=== PATIENT | male | born 1990 | race Two or more races ===

== ENCOUNTER 2024-06-27 13:36 | Inpatient (IN) | payer MEDICAID, SELFPAY ==
[2024-06-27] VITALS (21 sets, daily range): BP systolic 121–150; BP diastolic 69–94; PULSE 80–114; RESP 16–26; TEMP 36.6–36.8; O2SAT 99–100; BMI 29.7
--- NOTE | 2024-06-27 14:30 | EKG_ITS ---
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
--- NOTE | 2024-06-27 14:30 | XR_ITS ---
Examination: PA chest single view TECHNIQUE: Upright PA chest single view Exam date and time: June 27, 2024 1439 hours INDICATIONS: Vomiting today. FINDINGS: Normal heart size Lungs are clear. The osseous structures are intact IMPRESSION: Negative for aspiration pneumonia
--- NOTE | 2024-06-27 14:32 | PD.EDNV ---
Nausea/Vomit./Diarrhea-RME/HPI General Chief complaint: Nausea/Vomiting/Diarrhea Stated complaint: SENT BY PCP FOR N/V, SOB, HIGH GLUCOSE R/O DKA Time Seen by Provider: 06/27/24 14:26 Arrival date/time: 06/27/24 13:36 RME / HPI RME / HPI Narrative: 34-year-old male patient with no known medical history and today was noted to have elevated blood sugar. Patient has been having nausea vomiting cannot keep anything down, palpitation, shortness of breath, not feeling well, drinking a lot of water, and dry mouth. Patient also complained of polyuria. Symptoms been going for the last 3 days. Patient denies any fever denies any cough denies any abdominal pain. Patient went to PCP today and was noted to have a blood sugar of 288, and was sent here to rule out DKA. Related Data Allergies Allergy/AdvReac Type Severity Reaction Status Date / Time No Known Allergies Allergy Verified 06/27/24 13:40 Review of Systems Review of Systems Narrative Review of Systems: Review of system reviewed and within normal limits except mentioned in HPI ED Exam Narrative Physical exam: VITAL SIGNS: Reviewed. GENERAL APPEARANCE: Alert and interactive, follows commands, no acute distress, HEAD AND FACE: Non-traumatic. ENT: PERRL, pink conjunctivitis, eyelid no trauma, Mucous membrane dry NECK: Supple, nontender, no nuchal rigidity. CHEST: No tenderness, no crepitus, no paradoxical movement, no retractions. LUNGS: Clear, well ventilated, symmetric, no rales, no wheezing, no ronchi, no stridor, good breath sounds bilaterally. HEART: Regular rate, regular rhythm, no murmur, no gallops. ABDOMEN: Soft, positive bowel sounds, nondistended, no guarding, nontender, no rebound, no masses, RECTAL: Deferred. GENITAL: Deferred. NEUROLOGICAL: Gross motor function intact sensory function intact, Appropriate for age. MUSCULOSKELETAL: low back nontender, full range of motion. EXTREMITIES: Nontender, full range of motion. SKIN: Color pink, dry, no rash, no lacerations, no abrasions, no contusions. LYMPHATICS: Deferred. Course Quality Measures none Orders Category Date Time Status COVID-19 Screening Questionnaire NOW Care 06/27/24 15:34 Active Decision to Admit X1 Care 06/27/24 15:34 Completed EKG (ED ONLY) *Do not use* NOW Care 06/27/24 14:31 Completed EKG (ED Only) Stat Exams 06/27/24 14:30 Draft XR chest 1V Stat Exams 06/27/24 14:30 Completed Acetone [Beta Hydroxybutyrate] Stat Lab 06/27/24 14:48 Completed Arterial Blood Gas Stat Lab 06/27/24 16:56 Received CBC Stat Lab 06/27/24 14:48 Completed Comprehensive Metabolic Panel Stat Lab 06/27/24 14:48 Completed Hemoglobin A1C [Glycohemoglobin w (eAG)] Stat Lab 06/27/24 14:48 Completed Lactate (Lactic Acid) Stat Lab 06/27/24 14:48 Completed Partial Thromboplastin Time Stat Lab 06/27/24 14:48 Completed Procalcitonin Stat Lab 06/27/24 14:48 Completed UA, C/S IF [Urinalysis, C/S if Indicated] Stat Lab 06/27/24 15:14 Completed Venous Blood Gas Stat Lab 06/27/24 16:40 Received KCL 20 mEq/L in 1/2NS Med 06/27/24 15:31 Discontinued 20 meq in 1,000 ml IV 12 mls/hr Ondansetron Inj [Zofran Inj] Med 06/27/24 14:32 Discontinued 4 mg IV X1 ONE Potassium Chloride [K-Dur] Med 06/27/24 15:30 Discontinued 40 meq PO X1 ONE Sodium Chloride 0.9% 1000 ml [Ns] 1,000 ml Med 06/27/24 14:32 Discontinued IV 999 mls/hr Vital Signs Vital signs: Vital Signs Temperature 98.3 F 06/27/24 14:26 Pulse Rate 114 H 06/27/24 14:26 Respiratory Rate 18 06/27/24 14:26 Blood Pressure 134/90 H 06/27/24 14:26 Pulse Oximetry (%) 99 06/27/24 14:26 Oxygen Delivery Method Room Air 06/27/24 14:26 Nausea/Vomiting/Diarrhea MDM Narrative MDM Narrative:: 34-year-old male patient with no known medical history and today was noted to have elevated blood sugar. Patient has been having nausea vomiting cannot keep anything down, palpitation, shortness of breath, not feeling well, drinking a lot of water, and dry mouth. Patient also complained of polyuria. Symptoms been going for the last 3 days. Patient denies any fever denies any cough denies any abdominal pain. Patient went to PCP today and was noted to have a blood sugar of 288, and was sent here to rule out DKA. Patient's workup is significant for diabetic ketoacidosis, patient Co2 was noted to be less than 10, anion gap of 22, potassium 3.1 creatinine 1.7 blood sugar of 349. With hydroxybutyrate was noted to be 6.4. Chest x-ray came back unremarkable. EKG showed sinus tachycardia, ventricular to 112 bpm, no ST segment elevation depression noted Potassium was replaced, using 40 mEq p.o. 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 patient Patient data External records reviewed:: None Clinical information provided by:: patient Social determinants that could affect healthcare access:: none Patient has the following chronic illnesses:: None How is presenting disease/condition affected by chronic disease/condition?: no chronic disease Evaluation data The following diagnostics were reviewed and interpreted by me:: lab results, radiology exam(s) and EKG tracing(s) Lab and/or radiology exams considered but not ordered:: None Interpretation Summary: EKG shows sinus tachycardia, ventricular to 112 bpm, no ST segment elevation depression. Patient's workup is significant for diabetic ketoacidosis, patient Co2 was noted to be less than 10, anion gap of 22, potassium 3.1 creatinine 1.7 blood sugar of 349. With hydroxybutyrate was noted to be 6.4. Chest x-ray came back unremarkable. EKG showed sinus tachycardia, ventricular to 112 bpm, no ST segment elevation depression noted. I personally reviewed and interpreted the x-ray of this patient. There is no acute abnormalities found, no infiltrates no pneumothorax no hemothorax normal chest x-ray. Review of other structures was without significant abnormal findings also. I additionally reviewed the radiologist report and agree with the interpretation. Medications / Prescriptions Medications / Prescriptions considered but not ordered:: None Medication administrations:: Medication Administration History Dextrose (Dextrose 50%-Water Inj 50 Ml Syringe) 25 ml IV PRNMRX1 PRN PRN Reason: Blood Sugar - Low Dextrose/Lactated Ringer's (D5-Lr) 1,000 mls @ 250 mls/hr IV .Q4H PRN PRN Reason: PER PROTOCOL Stop: 07/27/24 16:01 Lactated Ringer's (Lactated Ringers) 1,000 mls @ 250 mls/hr IV .Q4H PRN PRN Reason: PER PROTOCOL Stop: 06/28/24 16:01 Discontinued Medications Acetaminophen (Acetaminophen 325 Mg Tablet) 650 mg PO Q4HR PRN PRN Reason: PAIN SCALE 1-3 (mild Stop: 07/27/24 16:01 Acetaminophen (Acetaminophen Supp 650 Mg Supp) 650 mg [place] Q4HR PRN PRN Reason: PAIN SCALE 1-3 (mild Stop: 07/27/24 16:01 Sodium Chloride (Ns) 1,000 mls @ 999 mls/hr IV .Q1H1M ONE Stop: 06/27/24 15:32 Last Infusion: 06/27/24 16:49 Dose: Infused Documented By: Admin: 06/27/24 15:03 Dose: 999 mls/hr Documented By: DINA Potassium Chloride/Sodium Chloride (Kcl 20 Meq/L In 1/2ns) 20 meq in 1,000 mls @ 12 mls/hr IV .Q24H GINA; Protocol Stop: 07/27/24 15:30 Last Admin: 06/27/24 16:50 Dose: Not Given Documented By: DD Non-Admin Reason: Discontinued Insulin Human Regular (Insulin Hum Regular 1 Unit/0.01 Ml (Per Unit)) 10 unit IV X1 ONE Stop: 06/27/24 16:25 Last Admin: 06/27/24 16:50 Dose: Not Given Documented By: DD Non-Admin Reason: Discontinued Magnesium Hydroxide (Milk Of Magnesia Susp 30 Ml Udc) 30 ml PO QDAY PRN PRN Reason: CONSTIPATION Stop: 07/27/24 16:01 Ondansetron HCl (Ondansetron Inj 2 Mg/Ml Inj 2 Ml) 4 mg IV X1 ONE; Protocol Stop: 06/27/24 14:33 Last Admin: 06/27/24 16:48 Dose: 4 mg Documented By: KORTNEY Potassium Chloride (Potassium Chloride 20 Meq Tabcr) 40 meq PO X1 ONE Stop: 06/27/24 15:31 Last Admin: 06/27/24 16:01 Dose: 40 meq Documented By: KF Potassium Chloride (Potassium Chloride 20 Meq Tabcr) 40 meq PO X1 ONE Stop: 06/27/24 16:26 Last Admin: 06/27/24 16:48 Dose: 40 meq Documented By: DD Potassium replacement, IV fluids, Zofran Consultations Consultation(s) initiated? (list below): No Consultation #1 (Physician, Specialty, Details): None Diagnosis Nausea Differential Diagnosis: gastroenteritis and dehydration Most likely diagnosis given after review of the tests above:: Diabetic ketoacidosis Admission Indicated Admission indicated?: indicated Explain why admission is indicated or not indicated:: For further management Admission Request Was there a request for admission?: Yes Admission Attestation Admission request attestation: Discussed case with [Dr. Madsen] from Hospitalist service regarding admission. Discussed patients ED course, exam findings, labs, and radiology results. The Hospitalist [agrees] to accept the patient for admission. Disposition Plan Disposition Plan: Admit Critical Care Time Critical Care Time Critical Care Time: Yes Total Critical Care Time (min.): 35 Attestation: Critical Care Time The very real possibility of a deterioration of this patient's condition required the highest level of my preparedness for sudden, emergent intervention for the following systems: Cardiac and Metabolic. I provided critical care services, which included medication orders, frequent re-evaluations of the patient's condition and response to treatment, ordering and reviewing test results, and discussing the case with various consultants including: nursing staff, hospitalist, and more. The critical care time associated with the care of this patient was 45 minutes. Discharge Plan Plan Patient Disposition: Admit Acute Care w/in Hospital Disposition Comment: Stable Problem List Clinical Impression: Diabetic ketoacidosis
[2024-06-27 14:58] LABS: Lactate (Lactic Acid) 1.7 mMol/L (0.4-2.0)
[2024-06-27] MEDS: SODIUM CHLORIDE 0.9% 1000 ML 1,000 ML 999 ML IV (15:03)
[2024-06-27 15:11] LABS: Beta Hydroxybutyrate 6.4 mmol/L (<0.6)
[2024-06-27 15:25] LABS: Basophils % (Auto) 1 % (0-2.5); Eosinophils % (Auto) 0 % (0-10); Hematocrit 47.1 % (41.0-53.0); Immature Granulocytes % (Auto) 1 % (0-0); Lymphocytes % (Auto) 13 % (10-50); Mean Corpuscular HGB Conc 36.1 g/dl (31.0-37.0); Mean Corpuscular Hemoglobin 33.3 pg (25.0-35.0); Mean Corpuscular Volume 92 fL (80-100); Monocytes # (Auto) 0.8 Thou/mm3 (0.0-0.8); Monocytes % (Auto) 10 % (0-12); Neutrophils # (Auto) 5.8 Thou/mm3 (1.8-7.7); Neutrophils % (Auto) 75 % (37-80); Nucleated Red Blood Cell # 0.02 Thou/mm3 (0.00-0.00); Nucleated Red Blood Cell % 0 /100 WBC (0); Platelet Count 181 Thou/mm3 (140-440); RDW Standard Deviation 41.1 fL (35.1-43.9); White Blood Count 7.6 Thou/mm3 (3.8-10.6)
[2024-06-27 15:26] LABS: Alanine Aminotransferase 108 U/L (10-49); Albumin, Serum 5.8 gm/dL (3.5-5.0); Albumin/Globulin Ratio 1.7 (1.2-2.2); Alkaline Phosphatase 111 U/L (46-116); Anion Gap 22 (7-16); Aspartate Amino Transferase 51 U/L (0-34); BUN/Creatinine Ratio 6 Ratio (12-20); Bilirubin,Total 0.7 mg/dL (0.3-1.2); Blood Urea Nitrogen 10 mg/dL (9-23); Calcium 9.7 mg/dL (8.3-10.6); Calcium (Corrected) 9.7 mg/dL (8.5-10.1); Chloride 92 mMol/L (98-107); Creatinine (Component) 1.7 mg/dL (0.6-1.3); Estimated Creatinine Clearance 62.6 mL/min (>60); Globulin 3.4 gm/dL (2.3-3.5); Glucose 349 mg/dL (74-106); Osmolality,Calculated 262 (275-295); Potassium 3.1 mMol/L (3.4-5.1); Procalcitonin 0.09 ng/ml (0.0-0.49); Sodium 124 mMol/L (136-145); Total Protein 9.2 gm/dL (5.7-8.2); eGFR 54 See Note
[2024-06-27 15:28] LABS: Carbon Dioxide < 10.0 mMol/L (20.0-31.0)
[2024-06-27 15:31] LABS: Collection Type, Urine Clean Catch
[2024-06-27 15:32] LABS: Partial Thromboplastin Time 26.2 Seconds (22.0-36.0)
[2024-06-27 15:55] LABS: Bacteria,Urine Rare; Bilirubin,Urine Negative (Negative); Blood,Urine 2+ (Negative); Clarity,Urine Clear (Clear/Hazy); Color,Urine Lt-Yellow (Lt Yel-Yel); Culture Indicated,Urine Not Indicated; Glucose, Urine 4+ (Negative); Ketones,Urine 4+ (Negative); Leukocyte Esterase,Urine Negative (Negative); Nitrite,Urine Negative (Negative); Protein,Urine 2+ (Neg - Trace); RBC,Urine 5 /hpf (0-3); Specific Gravity,Urine 1.029 (1.001-1.035); Squamous Epithelial Cell,Urine 1 /hpf (0-5); WBC,Urine 1 /hpf (0-5)
[2024-06-27] MEDS: POTASSIUM CHLORIDE 20 mEq TABCR 40 MEQ PO ×2 (16:01→16:48)
[2024-06-27 16:20] LABS: Glucose Estimated Average 289 mg/dL (80-131); Hemoglobin A1C 11.7 % Hgb (4.8-6.0)
--- NOTE | 2024-06-27 16:44 | PD.INTHP ---
Documentation for date of: 06/27/24 [employer] HPI History of Present Illness History of Present Illness: Nausea, vomiting, diarrhea and SOB History of present illness: 34 year old male with no PMHx presented to ED with 5 days of worsening nausea, vomiting and diarrhea, patient went to urgent care on day of admission due to his nausea and vomiting after which he was sent to ED. He also reported having a productive cough of yellowish sputum with right/mid sternal chest pain when coughing, in ED patient was found to be tachycardic with heart rate 114, labs noted for Hgb 17, Na 124, K 3.1, Cl 92, HCO3 <10, anion gap 22, Cr 1.7, glucose of 350, and beta hydroxybutyrate of 6.4. LFTs were noted to be mildly elevated ALT 108. Patient reports positive family history of diabetes in his dad and brother. At ED patient was given 1L of NS bolus, 60 Meq of KCl. Patient was admitted to ICU for management and care of DKA. Review of Systems Review of Systems Systems Reviewed: All systems reviewed, normal except as documented Meds Home Medications and Allergies Allergies Allergy/AdvReac Type Severity Reaction Status Date / Time No Known Allergies Allergy Verified 06/27/24 13:40 Exam Vital Signs Temp Pulse Resp BP Pulse Ox O2 Del Method 97.8 F 102 H 20 150/94 H 99 Room Air 06/27/24 16:14 06/27/24 16:14 06/27/24 16:14 06/27/24 16:14 06/27/24 16:14 06/27/24 16:14 Narrative Exam General: well developed, well nourished, laying in bed, appears distressed but answering questions appropriately, making appropriate eye contact. HEENT: Normocephalic, atraumatic, EOMI, PERRLA, moist oral mucosa, normal dentition. Cardiac: Tachycardic, normal S1/S2, no murmurs. Lungs: Clear to auscultation with no wheezings or crackles, normal respiratory effort and rate. Abdomen: Soft, diffusely tender, nondistended, positive bowel sounds in all quadrants. No guarding or rebound tenderness. Neuro: Alert and oriented to name and date of and place. CN II- XII intact, no focal motor deficit noted, BUE/BLE motor function and sensation intact and equal. Extremities: Normal to inspection, no edema, no cyanosis Psych: Normal mood and affect. Results: Labs 06/27/24 14:48 06/27/24 14:48 Labs: Short CBC 06/27/24 Range/Units 14:48 WBC 7.6 (3.8-10.6) Thou/mm3 Hgb 17.0 H (13.5-16.0) g/dL Hct 47.1 (41.0-53.0) % Plt Count 181 (140-440) Thou/mm3 BMP 06/27/24 14:48 Sodium 124 L Potassium 3.1 L Chloride 92 L Carbon Dioxide < 10.0 L* BUN 10 Creatinine 1.7 H Glucose 349 H Calcium 9.7 Liver Function 06/27/24 Range/Units 14:48 Total Bilirubin 0.7 (0.3-1.2) mg/dL AST 51 H (0-34) U/L ALT 108 H (10-49) U/L Alkaline Phosphatase 111 (46-116) U/L Albumin 5.8 H (3.5-5.0) gm/dL Urine 06/27/24 Range/Units 15:14 Urine Color Lt-Yellow (Lt Yel-Yel) Urine Clarity Clear (Clear/Hazy) Urine pH 6.0 (5.0-7.0) Ur Specific [place] 1.029 (1.001-1.035) Urine Protein 2+ A (Neg - Trace) Urine Glucose (UA) 4+ A (Negative) Assessment & Plan Provider Notation Provider Notation: Although this document has been carefully reviewed, there may still be some phonetic and other typographical errors. These errors are purely grammatical due to imperfections in the software program and should not be construed in any way to compromise the substance of the patient's medical care during this visit. Thank you for the opportunity and privilege in assisting you with this patient's care and management.
[2024-06-27] MEDS: ONDANSETRON INJ 2 MG/ML INJ 2 ML 4 MG IV (16:48)
[2024-06-27 17:02] LABS: Base Excess, Venous -22 (-3-3); O2 Saturation, Venous 59 % (96-97); PCO2, Venous 22 mmHg (36-56); PO2, Venous 29 mmHg (15-58); pH, Venous 7.08 (7.33-7.66)
--- NOTE | 2024-06-27 17:02 | PD.RESHP ---
Documentation for date of: 06/27/24 [facility] History of Present Illness Chief complaint: Nausea, vomiting, diarrhea, SOB. History of present illness: 34 year old male with no PMHx presented to ED with 5 days of worsening nausea, vomiting and diarrhea, patient went to urgent care on day of admission due to his nausea and vomiting after which he was sent to ED. He also reported having a productive cough of yellowish sputum with right/mid sternal chest pain when coughing, fevers, and chills, in ED patient was found to be tachycardic with heart rate 114, labs noted for Hgb 17, Na 124, K 3.1, Cl 92, HCO3 <10, anion gap 22, Cr 1.7, glucose of 350, and beta hydroxybutyrate of 6.4. LFTs were noted to be mildly elevated ALT 108. Patient reports positive family history of diabetes in his dad and brother. At ED patient was given 1L of NS bolus, 60 Meq of KCl. Patient was admitted to ICU for management and care of DKA. Review of Systems Review of Systems Systems Reviewed: All systems reviewed, normal except as documented Exam Vital Signs Temp Pulse Resp BP Pulse Ox O2 Del Method 97.8 F 92 20 150/94 H 99 Room Air 06/27/24 16:14 06/27/24 16:52 06/27/24 16:14 06/27/24 16:14 06/27/24 16:14 06/27/24 16:14 Narrative Exam General: well developed, well nourished, laying in bed, appears distressed, answering questions appropriately, making appropriate eye contact HEENT: Normocephalic, atraumatic, EOMI, PERRLA, moist oral mucosa, normal dentition. Cardiac: Tachycardic, normal S1/S2, no murmurs. Lungs: Clear to auscultation with no wheezings or crackles, normal respiratory effort and rate. Abdomen: Soft, diffusly tender, nondistended, positive bowel sounds in all quadrants. No guarding or rebound tenderness. Neuro: Alert and oriented to name and date of and place. CN II- XII intact, no focal motor deficit noted, BUE/BLE motor function and sensation intact and equal. Extremities: Normal to inspection, no edema, no cyanosis Psych: Normal mood and affect. Results: Labs 07/01/24 05:00 07/01/24 05:00 Labs: Short CBC 06/27/24 Range/Units 14:48 WBC 7.6 (3.8-10.6) Thou/mm3 Hgb 17.0 H (13.5-16.0) g/dL Hct 47.1 (41.0-53.0) % Plt Count 181 (140-440) Thou/mm3 BMP 06/27/24 14:48 Sodium 124 L Potassium 3.1 L Chloride 92 L Carbon Dioxide < 10.0 L* BUN 10 Creatinine 1.7 H Glucose 349 H Calcium 9.7 Liver Function 06/27/24 Range/Units 14:48 Total Bilirubin 0.7 (0.3-1.2) mg/dL AST 51 H (0-34) U/L ALT 108 H (10-49) U/L Alkaline Phosphatase 111 (46-116) U/L Albumin 5.8 H (3.5-5.0) gm/dL Urine 06/27/24 Range/Units 15:14 Urine Color Lt-Yellow (Lt Yel-Yel) Urine Clarity Clear (Clear/Hazy) Urine pH 6.0 (5.0-7.0) Ur Specific [place] 1.029 (1.001-1.035) Urine Protein 2+ A (Neg - Trace) Urine Glucose (UA) 4+ A (Negative) Quality Measures Quality Measures VTE prophylaxis Medications Home Medications and Allergies Allergies Allergy/AdvReac Type Severity Reaction Status Date / Time No Known Allergies Allergy Verified 07/03/24 13:56 Visit Medications Dextrose (Dextrose 50%-Water Inj 50 Ml Syringe) 25 ml IV PRNMRX1 PRN PRN Reason: Blood Sugar - Low Dextrose/Lactated Ringer's (D5-Lr) 1,000 mls @ 250 mls/hr IV .Q4H PRN PRN Reason: PER PROTOCOL Stop: 07/27/24 16:01 Lactated Ringer's (Lactated Ringers) 1,000 mls @ 250 mls/hr IV .Q4H PRN PRN Reason: PER PROTOCOL Stop: 06/28/24 16:01 Discontinued Medications Acetaminophen (Acetaminophen 325 Mg Tablet) 650 mg PO Q4HR PRN PRN Reason: PAIN SCALE 1-3 (mild Stop: 07/27/24 16:01 Acetaminophen (Acetaminophen Supp 650 Mg Supp) 650 mg [place] Q4HR PRN PRN Reason: PAIN SCALE 1-3 (mild Stop: 07/27/24 16:01 Sodium Chloride (Ns) 1,000 mls @ 999 mls/hr IV .Q1H1M ONE Stop: 06/27/24 15:32 Last Infusion: 06/27/24 16:49 Dose: Infused Potassium Chloride/Sodium Chloride (Kcl 20 Meq/L In 1/2ns) 20 meq in 1,000 mls @ 12 mls/hr IV .Q24H GINA; Protocol Stop: 07/27/24 15:30 Last Admin: 06/27/24 16:50 Dose: Not Given Insulin Human Regular (Insulin Hum Regular 1 Unit/0.01 Ml (Per Unit)) 10 unit IV X1 ONE Stop: 06/27/24 16:25 Last Admin: 06/27/24 16:50 Dose: Not Given Magnesium Hydroxide (Milk Of Magnesia Susp 30 Ml Udc) 30 ml PO QDAY PRN PRN Reason: CONSTIPATION Stop: 07/27/24 16:01 Ondansetron HCl (Ondansetron Inj 2 Mg/Ml Inj 2 Ml) 4 mg IV X1 ONE; Protocol Stop: 06/27/24 14:33 Last Admin: 06/27/24 16:48 Dose: 4 mg Potassium Chloride (Potassium Chloride 20 Meq Tabcr) 40 meq PO X1 ONE Stop: 06/27/24 15:31 Last Admin: 06/27/24 16:01 Dose: 40 meq Potassium Chloride (Potassium Chloride 20 Meq Tabcr) 40 meq PO X1 ONE Stop: 06/27/24 16:26 Last Admin: 06/27/24 16:48 Dose: 40 meq Assessment & Plan Plan 34 year old male with no PMHx presented to ED with 5 days of worsening nausea, vomiting and diarrhea, patient went to urgent care on day of admission due to his nausea and vomiting after which he was sent to ED. He also reported having a productive cough of yellowish sputum with right/mid sternal chest pain when coughing, fevers, and chills, in ED patient was found to be tachycardic with heart rate 114, labs noted for Hgb 17, Na 124, K 3.1, Cl 92, HCO3 <10, anion gap 22, Cr 1.7, glucose of 350, and beta hydroxybutyrate of 6.4. LFTs were noted to be mildly elevated ALT 108. Patient reports positive family history of diabetes in his dad and brother. At ED patient was given 1L of NS bolus, 60 Meq of KCl. Patient was admitted to ICU for management and care of DKA. 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 Hydralazine 10mg/q4 for SBP>170 #Tachycardia----Resolved 2/2 dehydration. Pulm #Productive cough---URI Yellow/greenish sputum, fevers, chills, and SOB No wbc elevation, Procal wnl, cxr negative for pna findings. oxygen as needed. Start Abx therapy as warranted. F/U Flu A/B. Bcx ordered. Renal #AGMA #Pre-renal SEMAJ #Hypochloremic hypovolemic hyponatremia #Hypokalemia In setting of Dehydration/DKA F/U renal panel Q4. Patient started on LR 250cc/hr Replete electrolyte as needed. G.I #N/V/D 2/2 DKA Managment per endo. Ondansetron as needed. Resume carb consistent diet once tolerating. Endo #Hyperglycemia #DKA #DM -Maintain BG between 140-180 ideally -Patient started on ISS. -F/U HbA1c -Renal panel q4 -Bedside glucose check q1h ID #No active issues. Heme #Polycythemia/ Hemoconcentration Hgb 17 Hgb 15.8 following 1L bolus MSK #No active problems SKIN #No active problems DVT prophylaxis: Enoxaparin Diet: Carb consistent once able to tolerate. Lines: PIV CODE STATUS: Full code Reason for hospitalization/disposition: DKA Plan of care discussed with attending Dr. Elie Hernandez PGY-3 Attending Provider Attestation/Addendum Patient seen on date of service. I was notified of patient's admission by the above resident, Laura Hernandez MD. I agree with the plan of care for admission for aggressive volume resuscitation and initiation of IV insulin for diabetic ketoacidosis in the setting of likely precipitated from an upper respiratory tract infection. Monitor closely for initiation of antibiotic therapy. Will need aggressive electrolyte replacement and close monitoring in the intensive care unit as the underlying metabolic derangements correct. Will follow-up on patient tomorrow morning. I remain available overnight for any questions should they arise.
[2024-06-27 17:03] LABS: Basophils % (Auto) 1 % (0-2.5); Eosinophils % (Auto) 0 % (0-10); Hematocrit 43.6 % (41.0-53.0); Hemoglobin 15.8 g/dL (13.5-16.0); Immature Granulocytes % (Auto) 1 % (0-0); Immature Granulocytes Auto 0.07 Thou/mm3 (0.00-0.00); Lymphocytes # (Auto) 0.7 Thou/mm3 (1.0-4.8); Lymphocytes % (Auto) 12 % (10-50); Mean Corpuscular HGB Conc 36.2 g/dl (31.0-37.0); Mean Corpuscular Hemoglobin 33.3 pg (25.0-35.0); Mean Corpuscular Volume 92 fL (80-100); Monocytes # (Auto) 0.6 Thou/mm3 (0.0-0.8); Monocytes % (Auto) 10 % (0-12); Neutrophils # (Auto) 4.4 Thou/mm3 (1.8-7.7); Neutrophils % (Auto) 76 % (37-80); Nucleated Red Blood Cell % 0 /100 WBC (0); Platelet Count 136 Thou/mm3 (140-440); RDW Standard Deviation 40.8 fL (35.1-43.9); Red Blood Count 4.75 Miln/mm3 (4.50-5.90); White Blood Count 5.8 Thou/mm3 (3.8-10.6)
[2024-06-27 17:06] LABS: Base Excess -23 (-3-3); HCO3 4 mEq/L (20-26); O2 Saturation 100 % (91-98); PCO2 11 mmHg (32.0-48.0); PO2 136 mmHg (83-108)
[2024-06-27 17:07] LABS: Inspired Oxygen, FIO2 21 %
[2024-06-27 17:08] LABS: Allen Test Performed/OK; Puncture Site Right Radial
[2024-06-27 17:13] LABS: pH, Arterial 7.12 (7.35-7.45)
[2024-06-27] MEDS: RINGERS LACTATED 1000 ML 1,000 ML 999 ML IV (17:17)
[2024-06-27 18:18] LABS: Albumin, Serum 5.3 gm/dL (3.5-5.0); Anion Gap 19 (7-16); BUN/Creatinine Ratio 6 Ratio (12-20); Blood Urea Nitrogen 9 mg/dL (9-23); Calcium 8.9 mg/dL (8.3-10.6); Calcium (Corrected) 8.9 mg/dL (8.5-10.1); Chloride 97 mMol/L (98-107); Creatinine (Component) 1.5 mg/dL (0.6-1.3); Glucose 277 mg/dL (74-106); Osmolality,Calculated 262 (275-295); Phosphorous 1.5 mg/dL (2.4-5.1); Potassium 3.2 mMol/L (3.4-5.1); Sodium 126 mMol/L (136-145); eGFR > 60 See Note
[2024-06-27 18:23] LABS: Carbon Dioxide < 10.0 mMol/L (20.0-31.0)
[2024-06-27] MEDS: RINGERS LACTATED 1000 ML 1,000 ML 250 ML IV (18:39)
[2024-06-27] MEDS: INSULIN REG 100 UNITS/100 ML 100 UNIT in PRE-MIXED 1 BAG 8.346 UNIT IV (18:43)
--- NOTE | 2024-06-27 19:25 | PC.NURSE ---
THIS RN GAVE REPORT TO SYLVIA ROWLAND. THIS RN WAS IN ANOTHER PTS ROOM WHO WAS CRITICAL, FELLOW JANETT HUANG ASSISTED THIS RN W/PTS CARE AND STARTED ALL MEDICATIONS AND ASSESSMENTS.
[2024-06-27] MEDS: POT CHL ADDITIVE 40 MEQ in DEXTROSE 5%-LACTATED RINGERS 1,000 ML 250 MEQ IV (20:16)
[2024-06-27] MEDS: POTASSIUM CHL 10 mEq IVPB 10 MEQ/100 ML BAG 100 MEQ IV (20:50)
[2024-06-27 22:09] LABS: Albumin, Serum 4.4 gm/dL (3.5-5.0); Anion Gap 19 (7-16); BUN/Creatinine Ratio 7 Ratio (12-20); Blood Urea Nitrogen 8 mg/dL (9-23); Calcium 9.3 mg/dL (8.3-10.6); Calcium (Corrected) 9.3 mg/dL (8.5-10.1); Chloride 106 mMol/L (98-107); Creatinine (Component) 1.2 mg/dL (0.6-1.3); Estimated Creatinine Clearance 88.8 mL/min (>60); Glucose 96 mg/dL (74-106); Osmolality,Calculated 268 (275-295); Potassium 3.7 mMol/L (3.4-5.1); Sodium 135 mMol/L (136-145); eGFR > 60 See Note
[2024-06-27 22:21] LABS: Carbon Dioxide 10.5 mMol/L (20.0-31.0)
[2024-06-27] MEDS: KCL 20 mEq/L in D5-LR 20 MEQ/1,000 ML BAG 250 MEQ IV (22:44)
[2024-06-27 23:01] LABS: Phosphorous < 0.5 mg/dL (2.4-5.1)
[2024-06-28] VITALS (24 sets, daily range): BP systolic 105–129; BP diastolic 63–86; PULSE 79–156; RESP 8–35; TEMP 36.6–37.2; O2SAT 98–100; BMI 28.7; BMI 28.6
[2024-06-28 01:02] LABS: Albumin, Serum 4.1 gm/dL (3.5-5.0); Anion Gap 16 (7-16); BUN/Creatinine Ratio 6 Ratio (12-20); Blood Urea Nitrogen 7 mg/dL (9-23); Calcium 9.6 mg/dL (8.3-10.6); Calcium (Corrected) 9.6 mg/dL (8.5-10.1); Chloride 107 mMol/L (98-107); Creatinine (Component) 1.2 mg/dL (0.6-1.3); Estimated Creatinine Clearance 88.8 mL/min (>60); Glucose 146 mg/dL (74-106); Osmolality,Calculated 271 (275-295); Potassium 3.4 mMol/L (3.4-5.1); Sodium 135 mMol/L (136-145); eGFR > 60 See Note
[2024-06-28 01:19] LABS: Carbon Dioxide 11.8 mMol/L (20.0-31.0)
[2024-06-28 01:20] LABS: Phosphorous < 0.5 mg/dL (2.4-5.1)
[2024-06-28] MEDS: POT PHOS 15 mMol in NS 250 ML 15 MMOL/250 ML BAG 62.5 MMOL IV ×5 (01:33→21:52)
[2024-06-28] MEDS: KCL 20 mEq/L in D5-LR 20 MEQ/1,000 ML BAG 250 MEQ IV ×2 (03:40→17:07)
[2024-06-28 06:22] LABS: Basophils % (Auto) 0 % (0-2.5); Eosinophils # (Auto) 0.1 Thou/mm3 (0.0-0.5); Eosinophils % (Auto) 1 % (0-10); Hematocrit 35.6 % (41.0-53.0); Hemoglobin 12.9 g/dL (13.5-16.0); Immature Granulocytes % (Auto) 1 % (0-0); Immature Granulocytes Auto 0.04 Thou/mm3 (0.00-0.00); Lymphocytes # (Auto) 1.3 Thou/mm3 (1.0-4.8); Lymphocytes % (Auto) 27 % (10-50); Mean Corpuscular HGB Conc 36.2 g/dl (31.0-37.0); Mean Corpuscular Hemoglobin 33.5 pg (25.0-35.0); Mean Corpuscular Volume 93 fL (80-100); Monocytes # (Auto) 0.8 Thou/mm3 (0.0-0.8); Monocytes % (Auto) 17 % (0-12); Neutrophils # (Auto) 2.6 Thou/mm3 (1.8-7.7); Neutrophils % (Auto) 54 % (37-80); Nucleated Red Blood Cell % 0 /100 WBC (0); Platelet Count 109 Thou/mm3 (140-440); RDW Standard Deviation 42.4 fL (35.1-43.9); Red Blood Count 3.85 Miln/mm3 (4.50-5.90); White Blood Count 4.9 Thou/mm3 (3.8-10.6)
[2024-06-28 06:55] LABS: Anion Gap 11 (7-16); BUN/Creatinine Ratio 5 Ratio (12-20); Blood Urea Nitrogen 5 mg/dL (9-23); Calcium 8.9 mg/dL (8.3-10.6); Calcium (Corrected) 8.9 mg/dL (8.5-10.1); Carbon Dioxide 15.8 mMol/L (20.0-31.0); Chloride 107 mMol/L (98-107); Estimated Creatinine Clearance 104.9 mL/min (>60); Glucose 158 mg/dL (74-106); Magnesium 1.9 mg/dL (1.6-2.6); Osmolality,Calculated 268 (275-295); Potassium 2.9 mMol/L (3.4-5.1); Sodium 134 mMol/L (136-145); eGFR > 60 See Note
[2024-06-28 07:15] LABS: Phosphorous 0.7 mg/dL (2.4-5.1)
[2024-06-28] MEDS: ENOXAPARIN SOD INJ 40 MG/0.4 ML SYRINGE SC (08:30)
[2024-06-28] MEDS: POTASSIUM CHLORIDE 20 mEq TABCR PO ×3 (08:57→22:55)
[2024-06-28] MEDS: POTASSIUM CHL 10 mEq IVPB 10 MEQ/100 ML BAG 50 MEQ IV ×4 (08:58→13:51)
[2024-06-28 10:26] LABS: Albumin, Serum 4.5 gm/dL (3.5-5.0); Anion Gap 14 (7-16); BUN/Creatinine Ratio 5 Ratio (12-20); Blood Urea Nitrogen 5 mg/dL (9-23); Calcium 9.2 mg/dL (8.3-10.6); Calcium (Corrected) 9.2 mg/dL (8.5-10.1); Chloride 104 mMol/L (98-107); Estimated Creatinine Clearance 104.9 mL/min (>60); Glucose 157 mg/dL (74-106); Magnesium 1.9 mg/dL (1.6-2.6); Osmolality,Calculated 268 (275-295); Phosphorous 1.4 mg/dL (2.4-5.1); Potassium 2.9 mMol/L (3.4-5.1); Sodium 134 mMol/L (136-145); eGFR > 60 See Note
[2024-06-28] MEDS: POTASSIUM CHLORIDE 10% 20 MEQ/15 ML UDC 40 MEQ PO (12:22)
--- NOTE | 2024-06-28 13:21 | ESPR_ITS ---
Documentation for date of: 06/28/24 Subjective Subjective Interval history: 06/28/2024; patient seen and examined by bedside, doing well and has no overnight events, no longer complains of nausea/vomiting. Vitals remained stable with CBC only noted for Hgb 12.9, platelets 109, CMP noted for potassium of 2.9, HCO3 16, anion gap 11, insulin drip was held until potassium repletion completed, follow-up CMP was noted for repeat anion gap metabolic acidosis with HCO3 at 12 and anion gap 18. Patient was started again on insulin drip, will follow-up repeat renal panels, correct electrolytes as needed, and transition patient to subcutaneous insulin with a dose of 16 units of long acting insulin along with insulin sliding scale. Exam Vital Signs Temp Pulse Resp BP Pulse Ox O2 Del Method 98.7 F 88 19 126/80 100 Room Air 06/28/24 08:00 06/28/24 12:00 06/28/24 12:00 06/28/24 12:00 06/28/24 12:00 06/27/24 19:23 Narrative Exam General: Well developed, well nourished, laying in bed, answering questions appropriately, making eye contact. HEENT: Normocephalic, atraumatic, EOMI, PERRLA, moist oral mucosa, normal dentition. Cardiac: RRR, normal S1/S2, no murmurs. Lungs: Clear to auscultation with no wheezings or crackles, normal respiratory effort and rate. Abdomen: Soft, non-tender, non-distended, positive bowel sounds in all quadrants. No guarding or rebound tenderness. Neuro: Alert and oriented to name and date of and place. CN II- XII intact, no focal motor deficit noted, BUE/BLE motor function and sensation intact and equal. Extremities: Normal to inspection, no edema, no cyanosis Psych: Normal mood and affect. Objective Labs 07/01/24 05:00 07/01/24 05:00 Labs: Laboratory Results - last 24 hr 06/27/24 06/27/24 06/27/24 14:48 15:14 16:40 WBC 7.6 5.8 RBC 5.10 4.75 Hgb 17.0 H 15.8 Hct 47.1 43.6 MCV 92 92 MCH 33.3 33.3 MCHC 36.1 36.2 RDW Std Deviation 41.1 40.8 Plt Count 181 136 L D Neut % (Auto) 75 76 Lymph % (Auto) 13 12 [place] % (Auto) 10 10 Eos % (Auto) 0 0 Baso % (Auto) 1 1 Neut # (Auto) 5.8 4.4 Lymph # (Auto) 1.0 0.7 L [place] # (Auto) 0.8 0.6 Eos # (Auto) 0.0 0.0 Baso # (Auto) 0.0 0.0 Immature Gran # (Auto) 0.10 H 0.07 H Absolute Nucleated RBC 0.02 H 0.00 Immature Gran % 1 H 1 H Nucleated RBC % 0 0 APTT 26.2 Puncture Site ABG pH ABG pCO2 ABG pO2 ABG HCO3 ABG O2 Saturation ABG Base Excess VBG pH 7.08 L VBG pCO2 22 L VBG pO2 29 VBG O2 Sat (Stacey) 59 L VBG Base Excess -22 L FiO2 Sodium 124 L Potassium 3.1 L Chloride 92 L Carbon Dioxide < 10.0 L* Anion Gap 22 H BUN 10 Creatinine 1.7 H Estim Creat Clear Calc 62.6 eGFR 54 L BUN/Creatinine Ratio 6 L Glucose [address] Glu mg/dL 289 H Hemoglobin A1c 11.7 H Calculated Osmolality 262 L Lactic Acid 1.7 Calcium 9.7 Corrected Calcium 9.7 Phosphorus Magnesium Total Bilirubin 0.7 AST 51 H ALT 108 H Alkaline Phosphatase 111 Total Protein 9.2 H Albumin 5.8 H Globulin 3.4 Albumin/Globulin Ratio 1.7 Beta-Hydroxybutyrate/Acetoacetate 6.4 H Procalcitonin 0.09 Ur Collection Type Clean Catch Urine Color Lt-Yellow Urine Clarity Clear Urine pH 6.0 Ur Specific [place] 1.029 Urine Protein 2+ A Urine Glucose (UA) 4+ A Urine Ketones 4+ A Urine Blood 2+ A Urine Nitrite Negative Urine Bilirubin Negative Urine Urobilinogen (Auto) 2.0 Ur Leukocyte Esterase Negative Urine RBC 5 H Urine WBC 1 Ur Squamous Epith Cells 1 Urine Bacteria Rare Ur Culture Indicated? Not Indicated 06/27/24 06/27/24 06/27/24 16:45 16:56 21:12 WBC RBC Hgb Hct MCV MCH MCHC RDW Std Deviation Plt Count Neut % (Auto) Lymph % (Auto) [place] % (Auto) Eos % (Auto) Baso % (Auto) Neut # (Auto) Lymph # (Auto) [place] # (Auto) Eos # (Auto) Baso # (Auto) Immature Gran # (Auto) Absolute Nucleated RBC Immature Gran % Nucleated RBC % APTT Puncture Site Right Radial ABG pH 7.12 L* ABG pCO2 11 L* ABG pO2 136 H ABG HCO3 4 L* ABG O2 Saturation 100 H ABG Base Excess -23 L VBG pH VBG pCO2 VBG pO2 VBG O2 Sat (Stacey) VBG Base Excess FiO2 21 Sodium 126 L 135 L Potassium 3.2 L 3.7 D Chloride 97 L 106 Carbon Dioxide < 10.0 L* 10.5 L* Anion Gap 19 H 19 H BUN 9 8 L Creatinine 1.5 H 1.2 Estim Creat Clear Calc 71.0 88.8 eGFR > 60 > 60 BUN/Creatinine Ratio 6 L 7 L Glucose 277 H D [address] Glu mg/dL Hemoglobin A1c Calculated Osmolality 262 L 268 L Lactic Acid Calcium 8.9 9.3 Corrected Calcium 8.9 9.3 Phosphorus 1.5 L < 0.5 L* Magnesium 2.0 Total Bilirubin AST ALT Alkaline Phosphatase Total Protein Albumin 5.3 H D 4.4 D Globulin Albumin/Globulin Ratio Beta-Hydroxybutyrate/Acetoacetate Procalcitonin Ur Collection Type Urine Color Urine Clarity Urine pH Ur Specific [place] Urine Protein Urine Glucose (UA) Urine Ketones Urine Blood Urine Nitrite Urine Bilirubin Urine Urobilinogen (Auto) Ur Leukocyte Esterase Urine RBC Urine WBC Ur Squamous Epith Cells Urine Bacteria Ur Culture Indicated? 06/28/24 06/28/24 06/28/24 00:21 05:21 09:17 WBC 4.9 RBC 3.85 L Hgb 12.9 L D Hct 35.6 L MCV 93 MCH 33.5 MCHC 36.2 RDW Std Deviation 42.4 Plt Count 109 L Neut % (Auto) 54 Lymph % (Auto) 27 [place] % (Auto) 17 H Eos % (Auto) 1 Baso % (Auto) 0 Neut # (Auto) 2.6 Lymph # (Auto) 1.3 [place] # (Auto) 0.8 Eos # (Auto) 0.1 Baso # (Auto) 0.0 Immature Gran # (Auto) 0.04 H Absolute Nucleated RBC 0.00 Immature Gran % 1 H Nucleated RBC % 0 APTT Puncture Site ABG pH ABG pCO2 ABG pO2 ABG HCO3 ABG O2 Saturation ABG Base Excess VBG pH VBG pCO2 VBG pO2 VBG O2 Sat (Stacey) VBG Base Excess FiO2 Sodium 135 L 134 L 134 L Potassium 3.4 2.9 L D 2.9 L Chloride 107 107 104 Carbon Dioxide 11.8 L* 15.8 L 16.0 L Anion Gap 16 11 14 BUN 7 L 5 L 5 L Creatinine 1.2 1.0 1.0 Estim Creat Clear Calc 88.8 104.9 104.9 eGFR > 60 > 60 > 60 BUN/Creatinine Ratio 6 L 5 L 5 L Glucose 146 H D [address] Glu mg/dL Hemoglobin A1c Calculated Osmolality 271 L 268 L 268 L Lactic Acid Calcium 9.6 8.9 9.2 Corrected Calcium 9.6 8.9 9.2 Phosphorus < 0.5 L* 0.7 L* 1.4 L Magnesium 2.0 1.9 1.9 Total Bilirubin AST ALT Alkaline Phosphatase Total Protein Albumin 4.1 4.0 4.5 D Globulin Albumin/Globulin Ratio Beta-Hydroxybutyrate/Acetoacetate Procalcitonin Ur Collection Type Urine Color Urine Clarity Urine pH Ur Specific [place] Urine Protein Urine Glucose (UA) Urine Ketones Urine Blood Urine Nitrite Urine Bilirubin Urine Urobilinogen (Auto) Ur Leukocyte Esterase Urine RBC Urine WBC Ur Squamous Epith Cells Urine Bacteria Ur Culture Indicated? ABG Interpretation ABG results: 06/27/24 06/27/24 16:40 16:56 ABG pH 7.12 L* ABG pCO2 11 L* ABG pO2 136 H ABG HCO3 4 L* ABG O2 Saturation 100 H ABG Base Excess -23 L VBG pH 7.08 L VBG pCO2 22 L VBG pO2 29 VBG Base Excess -22 L Quality Measures Quality Measures VTE prophylaxis Assessment & Plan Assessment Current Active Medications: Generic Name Dose Route Start Last Admin Trade Name Freq PRN Reason Stop Dose Admin Dextrose 25 ml 06/27/24 16:02 Dextrose 50%-Water Inj 50 Ml Syringe IV [id number] PRN Blood Sugar - Low Enoxaparin Sodium 40 mg 06/28/24 09:00 06/28/24 08:30 Enoxaparin Sod Inj 40 Mg/0.4 Ml Syringe SC 07/12/24 08:59 40 mg QDAY GINA Administration Hydralazine HCl 10 mg 06/27/24 17:34 Hydralazine Inj 20 Mg/Ml Vial IV 07/27/24 17:33 Q4HR PRN SBP>170 Lactated Ringer's 1,000 mls @ 250 mls/hr 06/27/24 16:02 06/27/24 20:18 Lactated Ringers IV 06/28/24 16:01 0 mls/hr .Q4H PRN Infusion PER PROTOCOL Potassium Chloride 10 meq in 100 mls @ 100 mls/hr 06/27/24 17:38 06/27/24 20:50 Kcl Ivpb IV 07/27/24 17:37 100 mls/hr .Q1H PRN Administration IF POTASSIUM LESS THAN 3.3 Magnesium Sulfate 2 gm in 50 mls @ 25 mls/hr 06/27/24 17:38 Magnesium Sulfate Ivpb IV 07/27/24 17:37 .Q2H PRN PER DKA PROTOCOL Insulin Human Regular 100 unit 100 mls @ 8.346 mls/hr 06/27/24 17:38 06/28/24 07:00 / IV Miscellaneous Supplies IV 07/27/24 17:37 0.05 unit/kg/hr .[id number] PRN 4.173 mls/hr PER PROTOCOL Titration Protocol 0.1 UNIT/KG/HR Dextrose/Lactated Ringer's 1,000 mls @ 250 mls/hr 06/27/24 17:38 D5-Lr IV 07/27/24 17:37 .Q4H PRN PER PROTOCOL Lactated Ringer's 1,000 mls @ 250 mls/hr 06/27/24 17:38 Lactated Ringers IV 06/28/24 17:37 .Q4H PRN PER PROTOCOL Potassium Chloride 20 meq/ 1,010 mls @ 250 mls/hr 06/27/24 17:38 Lactated Ringer's IV 07/27/24 17:37 .Q4H3M PRN K LEVEL 3.3 TO 5.3mM/L Potassium Chloride 40 meq/ 1,020 mls @ 250 mls/hr 06/27/24 17:38 Lactated Ringer's IV 07/27/24 17:37 .Q4H5M PRN K LEVEL < 3.3 mM/L Potassium Chloride 40 meq/ 1,020 mls @ 250 mls/hr 06/27/24 17:38 06/27/24 22:45 Dextrose/Lactated Ringer's IV 07/27/24 17:37 0 mls/hr .Q4H5M PRN Infusion K LEVEL < 3.3mM/L Potassium Cl/Dextrose/Lact Ringer's 20 meq in 1,000 mls @ 250 mls/hr 06/27/24 17:38 06/28/24 03:40 Kcl 20 Meq/L In D5-Lr IV 07/27/24 17:37 250 mls/hr .Q4H PRN Administration K LEVEL 3.3 TO 5.3 mM/L Potassium Chloride 10 meq in 100 mls @ 50 mls/hr 06/27/24 17:38 Kcl Ivpb IV 07/27/24 17:37 PRN PRN K LEVEL 3.3 to 5.3 & BG > 200 Potassium Phosphate 15 mmol in 250 mls @ 62.5 mls/hr 06/27/24 17:38 06/28/24 01:33 Pot Phos 15 Mmol In Ns 250 Ml IV 07/27/24 17:37 62.5 mls/hr PRN PRN Administration Phosphate <= 1mg/dL Sodium Phosphate 15 mmol/ 255 mls @ 62.5 mls/hr 06/27/24 17:38 Sodium Chloride IV 07/27/24 17:37 .Q4H5M PRN Phosphate <= 1mg/dL and K> than 5.3 Potassium Phosphate 15 mmol in 250 mls @ 62.5 mls/hr 06/28/24 07:18 06/28/24 10:51 Pot Phos 15 Mmol In Ns 250 Ml IV 06/28/24 15:17 62.5 mls/hr Q4H GINA Administration Ondansetron HCl 4 mg 06/27/24 17:37 Ondansetron Inj 2 Mg/Ml Inj 2 Ml IV 07/27/24 17:36 Q6HR PRN NAUSEA OR VOMITING Protocol Sodium Bicarbonate 50 ml 06/27/24 17:38 Sodium Bicarb Inj 8.4% Syr 50 Ml Syringe IV 07/27/24 17:37 PRN PRN For ph <= to 7.0 Plan 34 year old male with no PMHx presented to ED with 5 days of worsening nausea, vomiting and diarrhea, patient went to urgent care on day of admission due to his nausea and vomiting after which he was sent to ED. He also reported having a productive cough of yellowish sputum with right/mid sternal chest pain when coughing, fevers, and chills, in ED patient was found to be tachycardic with heart rate 114, labs noted for Hgb 17, Na 124, K 3.1, Cl 92, HCO3 <10, anion gap 22, Cr 1.7, glucose of 350, and beta hydroxybutyrate of 6.4. LFTs were noted to be mildly elevated ALT 108. Patient reports positive family history of diabetes in his dad and brother. At ED patient was given 1L of NS bolus, 60 Meq of KCl. Patient was admitted to ICU for management and care of DKA. 06/28/2024; patient seen and examined by bedside, doing well and has no overnight events, no longer complains of nausea/vomiting. Vitals remained stable with CBC only noted for Hgb 12.9, platelets 109, CMP noted for potassium of 2.9, HCO3 16, anion gap 11, insulin drip was held until potassium repletion completed, follow-up CMP was noted for repeat anion gap metabolic acidosis with HCO3 at 12 and anion gap 18. Patient was started again on insulin drip, will follow-up repeat renal panels, correct electrolytes as needed, and transition patient to subcutaneous insulin with a dose of 16 units of long acting insulin along with insulin sliding scale. 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 Hydralazine 10mg/q4 for SBP>170 #Tachycardia----Resolved 2/2 dehydration. Pulm #Productive cough---URI Yellow/greenish sputum, fevers, chills, and SOB No wbc elevation, Procal wnl, cxr negative for pna findings. oxygen as needed. Start Abx therapy as warranted. F/U Flu A/B. Bcx ordered. Renal #AGMA #Pre-renal SEMAJ----resolved #Hypochloremic hypovolemic hyponatremia #Hypokalemia In setting of Dehydration/DKA F/U renal panel Q4. Patient started on LR 250cc/hr Replete electrolyte as needed. G.I #N/V/D---- resolved 2/2 DKA Managment per endo. Ondansetron as needed. Resume carb consistent diet once tolerating. Endo #Hyperglycemia #DKA #DM -Maintain BG between 140-180 ideally -Patient started on ISS. -HbA1c 11.7 -Renal panel q4 -Bedside glucose check q1h ID #No active issues. Heme #Polycythemia/ Hemoconcentration--- resolved Hgb 17 Hgb 15.8 following 1L bolus MSK #No active problems SKIN #No active problems DVT prophylaxis: Enoxaparin Diet: Carb consistent once able to tolerate. Lines: PIV CODE STATUS: Full code Reason for hospitalization/disposition: DKA Plan of care discussed with attending Dr. Elie Hernandez PGY-3 Attending Provider Attestation/Addendum Patient seen and examined with above resident, Laura Hernandez MD. I agree with the findings, assessment, and plan of care as documented except for any differences below. Patient with resolution of DKA precipitated by upper respiratory infection. Will continue to hold any antibiotics as likely this is viral infection. Patient with new onset diabetes and will need education for transition to subcutaneous insulin regimen but had worsening anion gap on follow-up warranting reinitiation of insulin drip. Patient with multiple electrolyte abnormalities with aggressive need for replacements. Patient will continue to be monitored in the ICU closely as his drip has to intermittently be stopped which is delaying resolution of underlying ketoacidosis. Patient and family counseled at the bedside on new diagnosis though they have multiple family members with diabetes. Total critical care time: Personally spent 30 minutes for review of physiologic parameters, directing plan of care throughout the day, and counseling patient/family at bedside. This is exclusive of time spent teaching housestaff or performing separate billable procedures. Patient continues to require critical care services for multiple metabolic derangements and severe metabolic acidosis secondary to diabetic ketoacidosis, new diagnosis without presence of coma. Patient remains at risk for increased morbidity and mortality without prompt and close monitoring only available in the intensive care unit.
[2024-06-28 14:19] LABS: Albumin, Serum 4.3 gm/dL (3.5-5.0); Anion Gap 18 (7-16); BUN/Creatinine Ratio 5 Ratio (12-20); Blood Urea Nitrogen < 5 mg/dL (9-23); Calcium 8.7 mg/dL (8.3-10.6); Calcium (Corrected) 8.7 mg/dL (8.5-10.1); Chloride 103 mMol/L (98-107); Estimated Creatinine Clearance 104.9 mL/min (>60); Glucose 224 mg/dL (74-106); Magnesium 1.8 mg/dL (1.6-2.6); Osmolality,Calculated 270 (275-295); Phosphorous 2.1 mg/dL (2.4-5.1); Potassium 3.8 mMol/L (3.4-5.1); Sodium 133 mMol/L (136-145); eGFR > 60 See Note
[2024-06-28] MEDS: INSULIN REG 100 UNITS/100 ML 100 UNIT in PRE-MIXED 1 BAG 8.346 UNIT IV (15:19)
[2024-06-28 17:30] LABS: Basophils % (Auto) 1 % (0-2.5); Eosinophils % (Auto) 1 % (0-10); Hematocrit 38.4 % (41.0-53.0); Hemoglobin 14.2 g/dL (13.5-16.0); Immature Granulocytes % (Auto) 1 % (0-0); Immature Granulocytes Auto 0.04 Thou/mm3 (0.00-0.00); Lymphocytes % (Auto) 18 % (10-50); Mean Corpuscular Hemoglobin 33.3 pg (25.0-35.0); Mean Corpuscular Volume 90 fL (80-100); Monocytes # (Auto) 0.6 Thou/mm3 (0.0-0.8); Monocytes % (Auto) 11 % (0-12); Neutrophils # (Auto) 3.6 Thou/mm3 (1.8-7.7); Neutrophils % (Auto) 69 % (37-80); Nucleated Red Blood Cell % 0 /100 WBC (0); Platelet Count 120 Thou/mm3 (140-440); Red Blood Count 4.26 Miln/mm3 (4.50-5.90); White Blood Count 5.3 Thou/mm3 (3.8-10.6)
[2024-06-28 17:56] LABS: Albumin, Serum 4.6 gm/dL (3.5-5.0); Anion Gap 17 (7-16); BUN/Creatinine Ratio 5 Ratio (12-20); Blood Urea Nitrogen < 5 mg/dL (9-23); Calcium 9.3 mg/dL (8.3-10.6); Calcium (Corrected) 9.3 mg/dL (8.5-10.1); Carbon Dioxide 15.3 mMol/L (20.0-31.0); Chloride 104 mMol/L (98-107); Estimated Creatinine Clearance 104.9 mL/min (>60); Glucose 135 mg/dL (74-106); Magnesium 1.8 mg/dL (1.6-2.6); Osmolality,Calculated 271 (275-295); Potassium 2.8 mMol/L (3.4-5.1); Sodium 136 mMol/L (136-145); eGFR > 60 See Note
[2024-06-28 18:01] LABS: Phosphorous < 0.5 mg/dL (2.4-5.1)
[2024-06-28] MEDS: NAPH,KPH MBDB 1 PACKET (1.5 GM) PO (18:27)
[2024-06-28] MEDS: POTASSIUM CHLORIDE 20 mEq TABCR 40 MEQ PO ×3 (19:03→21:58)
--- NOTE | 2024-06-28 19:47 | PC.NURSE ---
received report from Aida Zarco- paused insulin and d5 at 1845 for low k and phos levels-continue bedside blood glucose checks q1-[address] Myers for clarification fluid orders, per protocol LR + 40 kcl should be running at 250 ml /hr- received orders to start infusing the LR + 40KCL at 250ml/hr. Awaiting fluids from pharmacy.
[2024-06-28] MEDS: POT CHL ADDITIVE 40 MEQ in RINGERS LACTATED 1000 ML 1,000 ML 250 MEQ IV (20:40)
[2024-06-28 21:30] LABS: Anion Gap 19 (7-16); BUN/Creatinine Ratio 6 Ratio (12-20); Blood Urea Nitrogen < 5 mg/dL (9-23); Calcium 9.3 mg/dL (8.3-10.6); Chloride 102 mMol/L (98-107); Creatinine (Component) 0.9 mg/dL (0.6-1.3); Estimated Creatinine Clearance 116.6 mL/min (>60); Glucose 161 mg/dL (74-106); Osmolality,Calculated 270 (275-295); Sodium 135 mMol/L (136-145); eGFR > 60 See Note
[2024-06-28 21:37] LABS: Calcium (Corrected) 9.3 mg/dL (8.5-10.1); Magnesium 1.9 mg/dL (1.6-2.6); Phosphorous 2.5 mg/dL (2.4-5.1)
[2024-06-28 21:39] LABS: Carbon Dioxide 13.9 mMol/L (20.0-31.0)
[2024-06-28] MEDS: POTASSIUM CHL 10 mEq IVPB 10 MEQ/100 ML BAG 100 MEQ IV ×3 (21:54→23:55)
[2024-06-29] VITALS (19 sets, daily range): BP systolic 103–126; BP diastolic 65–82; PULSE 78–171; RESP 13–32; TEMP 36.6; O2SAT 98–100; BMI 29.7
[2024-06-29] MEDS: POT CHL ADDITIVE 40 MEQ in RINGERS LACTATED 1000 ML 1,000 ML 250 MEQ IV ×2 (00:53→09:39)
[2024-06-29 01:23] LABS: Anion Gap 17 (7-16); BUN/Creatinine Ratio 6 Ratio (12-20); Blood Urea Nitrogen < 5 mg/dL (9-23); Calcium 8.6 mg/dL (8.3-10.6); Calcium (Corrected) 8.6 mg/dL (8.5-10.1); Chloride 102 mMol/L (98-107); Creatinine (Component) 0.8 mg/dL (0.6-1.3); Estimated Creatinine Clearance 131.1 mL/min (>60); Glucose 179 mg/dL (74-106); Magnesium 1.6 mg/dL (1.6-2.6); Osmolality,Calculated 267 (275-295); Potassium 4.3 mMol/L (3.4-5.1); Sodium 133 mMol/L (136-145); eGFR > 60 See Note
[2024-06-29 01:36] LABS: Carbon Dioxide 13.8 mMol/L (20.0-31.0)
[2024-06-29] MEDS: POT CHL ADDITIVE 40 MEQ in DEXTROSE 5%-LACTATED RINGERS 1,000 ML 250 MEQ IV ×2 (01:43→08:28)
[2024-06-29] MEDS: Magnesium Sulfate 2 GM Ivpb 2 GM/50 ML BAG IV (03:00)
[2024-06-29 05:31] LABS: Basophils % (Auto) 1 % (0-2.5); Eosinophils # (Auto) 0.1 Thou/mm3 (0.0-0.5); Eosinophils % (Auto) 3 % (0-10); Hematocrit 34.6 % (41.0-53.0); Hemoglobin 12.5 g/dL (13.5-16.0); Immature Granulocytes % (Auto) 1 % (0-0); Immature Granulocytes Auto 0.03 Thou/mm3 (0.00-0.00); Lymphocytes # (Auto) 1.3 Thou/mm3 (1.0-4.8); Lymphocytes % (Auto) 33 % (10-50); Mean Corpuscular HGB Conc 36.1 g/dl (31.0-37.0); Mean Corpuscular Hemoglobin 32.9 pg (25.0-35.0); Mean Corpuscular Volume 91 fL (80-100); Monocytes # (Auto) 0.5 Thou/mm3 (0.0-0.8); Monocytes % (Auto) 12 % (0-12); Neutrophils % (Auto) 51 % (37-80); Nucleated Red Blood Cell % 0 /100 WBC (0); Platelet Count 99 Thou/mm3 (140-440); RDW Standard Deviation 40.9 fL (35.1-43.9); White Blood Count 3.9 Thou/mm3 (3.8-10.6)
[2024-06-29 05:51] LABS: Albumin, Serum 3.9 gm/dL (3.5-5.0); Anion Gap 12 (7-16); BUN/Creatinine Ratio 6 Ratio (12-20); Blood Urea Nitrogen < 5 mg/dL (9-23); Calcium (Corrected) 9.1 mg/dL (8.5-10.1); Chloride 103 mMol/L (98-107); Creatinine (Component) 0.8 mg/dL (0.6-1.3); Estimated Creatinine Clearance 131.1 mL/min (>60); Glucose 168 mg/dL (74-106); Magnesium 2.4 mg/dL (1.6-2.6); Osmolality,Calculated 269 (275-295); Potassium 3.7 mMol/L (3.4-5.1); Sodium 134 mMol/L (136-145); eGFR > 60 See Note
[2024-06-29 06:14] LABS: Phosphorous 0.5 mg/dL (2.4-5.1)
[2024-06-29] MEDS: POT PHOS 15 mMol in NS 250 ML 15 MMOL/250 ML BAG 62.5 MMOL IV ×4 (06:17→21:38)
[2024-06-29] MEDS: NAPH,KPH MBDB 1 PACKET (1.5 GM) 2 PACKET PO ×2 (08:07→18:07)
[2024-06-29] MEDS: ENOXAPARIN SOD INJ 40 MG/0.4 ML SYRINGE SC (09:34)
[2024-06-29 10:16] LABS: Albumin, Serum 4.3 gm/dL (3.5-5.0); Anion Gap 10 (7-16); BUN/Creatinine Ratio 6 Ratio (12-20); Blood Urea Nitrogen < 5 mg/dL (9-23); Calcium 8.9 mg/dL (8.3-10.6); Calcium (Corrected) 8.9 mg/dL (8.5-10.1); Carbon Dioxide 22.1 mMol/L (20.0-31.0); Chloride 102 mMol/L (98-107); Creatinine (Component) 0.8 mg/dL (0.6-1.3); Estimated Creatinine Clearance 133.6 mL/min (>60); Glucose 148 mg/dL (74-106); Osmolality,Calculated 268 (275-295); Phosphorous 2.1 mg/dL (2.4-5.1); Potassium 3.3 mMol/L (3.4-5.1); Sodium 134 mMol/L (136-145); eGFR > 60 See Note
--- NOTE | 2024-06-29 10:52 | PC.SS ---
Ishmael Gregory is a 34 -year-old male admitted to ICU for DKA. SS conducted bedside contact with the patient to complete initial assessment and to discuss discharge planning.? Patient confirmed demographic information. Patient identifies his life partner [phone] as his surrogate decision maker. Patient resides at home with family. Pt states he is able to complete all ADL?s independently, no need for any source of DME. Pts PCP is Dr. Jesus (last visit 06/27/24 [facility]) and pharmacy of choice is [email or web address]. DC option discussed and pt wishes to return home. Pts family will provide transportation upon DC. No further intervention required at this time, social worker would be available to address any further concerns.
[2024-06-29] MEDS: INSULIN GLARGINE (Lantus) 5 UNIT/0.05 ML (PER 5 UNITS) 16 UNIT SC (11:08)
[2024-06-29] MEDS: INSULIN LISPRO (AdmeLOG) 1 UNIT/0.01 ML UNIT SC ×2 (12:03→17:52)
[2024-06-29] MEDS: INSULIN LISPRO (AdmeLOG) 1 UNIT/0.01 ML UNIT 3 UNIT SC (13:33)
[2024-06-29] MEDS: POTASSIUM CHLORIDE 10% 20 MEQ/15 ML UDC 40 MEQ GT (15:49)
[2024-06-29] MEDS: INSULIN LISPRO (AdmeLOG) 1 UNIT/0.01 ML UNIT 8 UNIT SC (15:49)
[2024-06-29 16:23] LABS: Anion Gap 12 (7-16); BUN/Creatinine Ratio 6 Ratio (12-20); Blood Urea Nitrogen < 5 mg/dL (9-23); Carbon Dioxide 21.2 mMol/L (20.0-31.0); Chloride 99 mMol/L (98-107); Creatinine (Component) 0.9 mg/dL (0.6-1.3); Estimated Creatinine Clearance 118.8 mL/min (>60); Glucose 221 mg/dL (74-106); Potassium 3.1 mMol/L (3.4-5.1); Sodium 132 mMol/L (136-145); eGFR > 60 See Note
[2024-06-29 16:24] LABS: Calcium 8.6 mg/dL (8.3-10.6); Calcium (Corrected) 8.6 mg/dL (8.5-10.1); Magnesium 1.7 mg/dL (1.6-2.6); Osmolality,Calculated 268 (275-295); Phosphorous 2.6 mg/dL (2.4-5.1)
--- NOTE | 2024-06-29 16:25 | PD.RESPRO ---
Documentation for date of: 06/29/24 Subjective Subjective Interval history: 06/28/2024; patient seen and examined by bedside, doing well and has no overnight events, no longer complains of nausea/vomiting. Vitals remained stable with CBC only noted for Hgb 12.9, platelets 109, CMP noted for potassium of 2.9, HCO3 16, anion gap 11, insulin drip was held until potassium repletion completed, follow-up CMP was noted for repeat anion gap metabolic acidosis with HCO3 at 12 and anion gap 18. Patient was started again on insulin drip, will follow-up repeat renal panels, correct electrolytes as needed, and transition patient to subcutaneous insulin with a dose of 16 units of long acting insulin along with insulin sliding scale. 06/29/2024: The patient was interviewed and examined at the bedside this morning. He reported doing well. He denied any nausea, abdominal pain, headache, chest pain, SOB or leg swelling. His vitals were stable. CBC stable, sodium 134, potassium 3.7, bicarb 19, blood sugar 168. The patient was continued on insulin drip and around 11 AM he was given 16 units subcu Lantus and started on SSI lispro and insulin lispro 3 times daily WM. He was monitored further for couple of hours, renal panel and electrolytes were monitored and electrolytes were repleted. Of note, patient required multiple infusion of electrolytes as patient seemed to be deprived of intracellular electrolytes. Patient was downgraded to MedSurg unit with insulin Lantus 20 units at night, insulin lispro 7 units 3 times daily WM, insulin lispro SSI moderate scale. The sign out was given to Dr. Sam MD PGY3, hospitalist team A, to take care of of the patient starting at 7 AM on 06/30/2024. Exam Vital Signs Temp Pulse Resp BP Pulse Ox O2 Del Method 98 F 115 H 17 126/81 99 Room Air 06/29/24 12:00 06/29/24 14:00 06/29/24 14:00 06/29/24 14:06/29/24 14:00 06/27/24 19:23 Narrative Exam General: No acute distress, Alert and Oriented x 3 HEENT: Moist mucous membranes, oropharynx clear Neck: Supple, No masses, No JVD CVS: S1S2 Regular rate and rhythm, No murmurs, rubs or gallops Lungs: Clear to auscultation with no accessory use, no wheeze no rhonchi Abd: Soft, NT/ND, +BS, no organomegaly Ext: No edema, warm and well perfused Skin: No rash Psych: Appropriate mood and affect Objective Labs 07/01/24 05:00 07/01/24 05:00 Labs: Laboratory Results - last 24 hr 06/28/24 06/28/24 06/29/24 17:18 20:52 00:31 WBC 5.3 RBC 4.26 L Hgb 14.2 Hct 38.4 L MCV 90 MCH 33.3 MCHC 37.0 RDW Std Deviation 41.0 Plt Count 120 L Neut % (Auto) 69 Lymph % (Auto) 18 Angelina % (Auto) 11 Eos % (Auto) 1 Baso % (Auto) 1 Neut # (Auto) 3.6 Lymph # (Auto) 1.0 Angelina # (Auto) 0.6 Eos # (Auto) 0.0 Baso # (Auto) 0.0 Immature Gran # (Auto) 0.04 H Absolute Nucleated RBC 0.00 Immature Gran % 1 H Nucleated RBC % 0 Sodium 136 135 L 133 L Potassium 2.8 L D 3.0 L 4.3 D Chloride 104 102 102 Carbon Dioxide 15.3 L 13.9 L* 13.8 L* Anion Gap 17 H 19 H 17 H BUN < 5 L < 5 L < 5 L Creatinine 1.0 0.9 0.8 Estim Creat Clear Calc 104.9 116.6 131.1 eGFR > 60 > 60 > 60 BUN/Creatinine Ratio 5 L 6 L 6 L Glucose 135 H D 161 H 179 H Calculated Osmolality 271 L 270 L 267 L Calcium 9.3 9.3 8.6 Corrected Calcium 9.3 9.3 8.6 Phosphorus < 0.5 L* 2.5 3.0 Magnesium 1.8 1.9 1.6 Albumin 4.6 4.0 D 4.0 06/29/24 06/29/24 06/29/24 04:43 09:27 15:07 WBC 3.9 RBC 3.80 L Hgb 12.5 L Hct 34.6 L MCV 91 MCH 32.9 MCHC 36.1 RDW Std Deviation 40.9 Plt Count 99 L Neut % (Auto) 51 Lymph % (Auto) 33 Angelina % (Auto) 12 Eos % (Auto) 3 Baso % (Auto) 1 Neut # (Auto) 2.0 Lymph # (Auto) 1.3 Angelina # (Auto) 0.5 Eos # (Auto) 0.1 Baso # (Auto) 0.0 Immature Gran # (Auto) 0.03 H Absolute Nucleated RBC 0.00 Immature Gran % 1 H Nucleated RBC % 0 Sodium 134 L 134 L 132 L Potassium 3.7 D 3.3 L Chloride 103 102 Carbon Dioxide 19.0 L 22.1 Anion Gap 12 10 BUN < 5 L < 5 L Creatinine 0.8 0.8 Estim Creat Clear Calc 131.1 133.6 eGFR > 60 > 60 BUN/Creatinine Ratio 6 L 6 L Glucose 168 H 148 H Calculated Osmolality 269 L 268 L Calcium 9.0 8.9 Corrected Calcium 9.1 8.9 Phosphorus 0.5 L* 2.1 L Magnesium 2.4 2.0 Albumin 3.9 4.3 06/29/24 06/29/24 06/29/24 15:07 15:07 15:07 WBC RBC Hgb Hct MCV MCH MCHC RDW Std Deviation Plt Count Neut % (Auto) Lymph % (Auto) Angelina % (Auto) Eos % (Auto) Baso % (Auto) Neut # (Auto) Lymph # (Auto) Angelina # (Auto) Eos # (Auto) Baso # (Auto) Immature Gran # (Auto) Absolute Nucleated RBC Immature Gran % Nucleated RBC % Sodium Cancelled Potassium 3.1 L Cancelled Chloride 99 Cancelled Carbon Dioxide 21.2 Anion Gap BUN Creatinine Estim Creat Clear Calc eGFR BUN/Creatinine Ratio Glucose Calculated Osmolality Calcium Corrected Calcium Phosphorus Magnesium Albumin 06/29/24 06/29/24 06/29/24 15:07 15:07 15:07 WBC RBC Hgb Hct MCV MCH MCHC RDW Std Deviation Plt Count Neut % (Auto) Lymph % (Auto) Angelina % (Auto) Eos % (Auto) Baso % (Auto) Neut # (Auto) Lymph # (Auto) Angelina # (Auto) Eos # (Auto) Baso # (Auto) Immature Gran # (Auto) Absolute Nucleated RBC Immature Gran % Nucleated RBC % Sodium Potassium Chloride Carbon Dioxide Cancelled Anion Gap 12 Cancelled BUN < 5 L Cancelled Creatinine 0.9 Estim Creat Clear Calc eGFR BUN/Creatinine Ratio Glucose Calculated Osmolality Calcium Corrected Calcium Phosphorus Magnesium Albumin 06/29/24 06/29/24 06/29/24 15:07 15:07 15:07 WBC RBC Hgb Hct MCV MCH MCHC RDW Std Deviation Plt Count Neut % (Auto) Lymph % (Auto) Angelina % (Auto) Eos % (Auto) Baso % (Auto) Neut # (Auto) Lymph # (Auto) Angelina # (Auto) Eos # (Auto) Baso # (Auto) Immature Gran # (Auto) Absolute Nucleated RBC Immature Gran % Nucleated RBC % Sodium Potassium Chloride Carbon Dioxide Anion Gap BUN Creatinine Cancelled Estim Creat Clear Calc 118.8 Cancelled eGFR > 60 Cancelled BUN/Creatinine Ratio 6 L Glucose Calculated Osmolality Calcium Corrected Calcium Phosphorus Magnesium Albumin 06/29/24 06/29/24 06/29/24 15:07 15:07 15:07 WBC RBC Hgb Hct MCV MCH MCHC RDW Std Deviation Plt Count Neut % (Auto) Lymph % (Auto) Angelina % (Auto) Eos % (Auto) Baso % (Auto) Neut # (Auto) Lymph # (Auto) Angelina # (Auto) Eos # (Auto) Baso # (Auto) Immature Gran # (Auto) Absolute Nucleated RBC Immature Gran % Nucleated RBC % Sodium Potassium Chloride Carbon Dioxide Anion Gap BUN Creatinine Estim Creat Clear Calc eGFR BUN/Creatinine Ratio Cancelled Glucose 221 H D Cancelled Calculated Osmolality 268 L Cancelled Calcium 8.6 Corrected Calcium Phosphorus Magnesium Albumin 06/29/24 06/29/24 06/29/24 15:07 15:07 15:07 WBC RBC Hgb Hct MCV MCH MCHC RDW Std Deviation Plt Count Neut % (Auto) Lymph % (Auto) Angelina % (Auto) Eos % (Auto) Baso % (Auto) Neut # (Auto) Lymph # (Auto) Angelina # (Auto) Eos # (Auto) Baso # (Auto) Immature Gran # (Auto) Absolute Nucleated RBC Immature Gran % Nucleated RBC % Sodium Potassium Chloride Carbon Dioxide Anion Gap BUN Creatinine Estim Creat Clear Calc eGFR BUN/Creatinine Ratio Glucose Calculated Osmolality Calcium Cancelled Corrected Calcium 8.6 Phosphorus 2.6 Cancelled Magnesium 1.7 Cancelled Albumin 4.0 ABG Interpretation ABG results: 06/27/24 06/27/24 16:40 16:56 ABG pH 7.12 L* ABG pCO2 11 L* ABG pO2 136 H ABG HCO3 4 L* ABG O2 Saturation 100 H ABG Base Excess -23 L VBG pH 7.08 L VBG pCO2 22 L VBG pO2 29 VBG Base Excess -22 L Quality Measures Quality Measures VTE prophylaxis Assessment & Plan Assessment Current Active Medications: Generic Name Dose Route Start Last Admin Trade Name Freq PRN Reason Stop Dose Admin Dextrose 25 ml 06/27/24 16:02 Dextrose 50%-Water Inj 50 Ml Syringe IV [id number] PRN Blood Sugar - Low Dextrose 25 ml 06/29/24 11:23 Dextrose 50%-Water Inj 50 Ml Syringe IV 07/29/24 11:22 Q15MIN PRN BG 50-70 responsive npo pt Dextrose 50 ml 06/29/24 11:23 Dextrose 50%-Water Inj 50 Ml Syringe IV 07/29/24 11:22 Q15MIN PRN BG <50 OR BG <70 & pt unresponsive Enoxaparin Sodium 40 mg 06/28/24 09:00 06/29/24 09:34 Enoxaparin Sod Inj 40 Mg/0.4 Ml Syringe SC 07/12/24 08:59 40 mg QDAY GINA Administration Hydralazine HCl 10 mg 06/27/24 17:34 Hydralazine Inj 20 Mg/Ml Vial IV 07/27/24 17:33 Q4HR PRN SBP>170 Insulin Glargine 16 unit 06/29/24 10:45 06/29/24 11:08 Insulin Glargine (Lantus) 5 Unit/0.05 Ml (Per 5 Units) SC 07/29/24 10:44 16 unit QDAY GINA Administration Insulin Human Lispro 4 unit 06/29/24 17:30 Insulin Lispro (Admelog) 1 Unit/0.01 Ml Unit SC 07/29/24 17:29 TIDWM GINA Insulin Human Lispro 0 unit 06/29/24 15:04 Insulin Lispro (Admelog) 1 Unit/0.01 Ml Unit SC 07/29/24 11:29 ACHS [facility] Protocol Ondansetron HCl 4 mg 06/27/24 17:37 Ondansetron Inj 2 Mg/Ml Inj 2 Ml IV 07/27/24 17:36 Q6HR PRN NAUSEA OR VOMITING Protocol Plan 34 year old male with no PMHx presented to ED with 5 days of worsening nausea, vomiting and diarrhea, patient went to urgent care on day of admission due to his nausea and vomiting after which he was sent to ED. He also reported having a productive cough of yellowish sputum with right/mid sternal chest pain when coughing, fevers, and chills, in ED patient was found to be tachycardic with heart rate 114, labs noted for Hgb 17, Na 124, K 3.1, Cl 92, HCO3 <10, anion gap 22, Cr 1.7, glucose of 350, and beta hydroxybutyrate of 6.4. LFTs were noted to be mildly elevated ALT 108. Patient reports positive family history of diabetes in his dad and brother. At ED patient was given 1L of NS bolus, 60 Meq of KCl. Patient was admitted to ICU for management and care of DKA. 06/29/2024: The patient was interviewed and examined at the bedside this morning. He reported doing well. He denied any nausea, abdominal pain, headache, chest pain, SOB or leg swelling. His vitals were stable. CBC stable, sodium 134, potassium 3.7, bicarb 19, blood sugar 168. The patient was continued on insulin drip and around 11 AM he was given 16 units subcu Lantus and started on SSI lispro and insulin lispro 3 times daily WM. He was monitored further for couple of hours, renal panel and electrolytes were monitored and electrolytes were repleted. Of note, patient required multiple infusion of electrolytes as patient seemed to be deprived of intracellular electrolytes. Patient was downgraded to MedSurg unit with insulin Lantus 20 units at night, insulin lispro 7 units 3 times daily WM, insulin lispro SSI moderate scale. The sign out was given to Dr. Sam MD PGY3, hospitalist team A, to take care of of the patient starting at 7 AM on 06/30/2024. 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 Pulm #Possible URI patient has had Productive cough that resolved at hospital. Yellow/greenish sputum, subjective fevers, chills, and SOB Antibiotics was not started as no wbc elevation, Procal wnl, cxr negative for pna findings. oxygen as needed. Bcx negative for 48 hours Renal #AGMA, resolved #Pre-renal SEMAJ----resolved #Mild hyponatremia #Hypokalemia #Hypomagnesemia In setting of Dehydration/DKA Daily am labs -Monitor and aggressively replete potassium, magnesium and phosphorus G.I #N/V/D---- resolved 2/2 DKA Managment per endo. Ondansetron as needed. -On carb consistent diet once tolerating. Endo #Hyperglycemia #DKA, resolved #DM Type 2 DDx: Less likely DM type 1 as patient's brother also has early onset DM2 HbA1c 11.7 -Maintain BG between 140-180 ideally -Patient started on ACHS ISS moderate scale -Daily am labs -Bedside glucose check ACHS ID #No active issues. Heme #Polycythemia, resolved 2/2 Hemo-concentration 2/2 dehydration 2/2 DKA Hgb 17 Hgb 15.8 following 1L bolus MSK #No active problems SKIN #No active problems DVT prophylaxis: Enoxaparin Diet: Carb consistent once able to tolerate. Lines: PIV CODE STATUS: Full code Reason for hospitalization/disposition: DKA The patient's management plan was discussed with my attending physician MD Maurice Kay MD, PGY2 Attending Provider Attestation/Addendum Patient seen and examined with above resident, Maurice Young MD. I agree with the findings, assessment, plan of care as documented except for any differences below. Patient with closure of anion gap and normalization of bicarbonate after completion of DKA protocol. Patient transition to subcutaneous regimen of insulin. Patient counseled on the importance of long-term management of his insulin for prevention of secondary endorgan damage. Patient does have a brother who has diabetes though he remains on oral regimen only. Patient had significant electrolyte abnormalities with poor p.o. intake. Suspect evolving diabetic ketoacidosis which was likely precipitated by upper respiratory tract infection. Viral studies that were routinely been negative the patient has had resolution of his underlying illness now. Patient does not require acute treatment with antibiotics. Patient will be transition to the medicine estrada for ongoing management prior to discharge in the coming days. Patient will warrant ongoing education for optimization of his underlying diabetes and will need close follow-up with PCP to help continue to adjust his regimen. This was explained to the patient extensively at bedside by myself and residents. Total critical care time: Personally spent 35 minutes for review of physiologic parameters, coordination of care throughout the day, directing plan of care including treatment for metabolic derangements and hyperglycemia associated with new onset of diabetes, and counseling patient at the bedside. This is exclusive of time spent teaching of staff or performing any separate billable procedures.
[2024-06-29] MEDS: INSULIN LISPRO (AdmeLOG) 1 UNIT/0.01 ML UNIT 6 UNIT SC (16:40)
[2024-06-29 16:57] LABS: Basophils % (Auto) 0 % (0-2.5); Eosinophils # (Auto) 0.1 Thou/mm3 (0.0-0.5); Eosinophils % (Auto) 2 % (0-10); Hematocrit 35.6 % (41.0-53.0); Immature Granulocytes % (Auto) 1 % (0-0); Immature Granulocytes Auto 0.02 Thou/mm3 (0.00-0.00); Lymphocytes # (Auto) 0.8 Thou/mm3 (1.0-4.8); Lymphocytes % (Auto) 24 % (10-50); Mean Corpuscular HGB Conc 36.5 g/dl (31.0-37.0); Mean Corpuscular Hemoglobin 33.2 pg (25.0-35.0); Mean Corpuscular Volume 91 fL (80-100); Monocytes # (Auto) 0.4 Thou/mm3 (0.0-0.8); Monocytes % (Auto) 11 % (0-12); Neutrophils # (Auto) 2.1 Thou/mm3 (1.8-7.7); Neutrophils % (Auto) 63 % (37-80); Nucleated Red Blood Cell % 0 /100 WBC (0); Platelet Count 103 Thou/mm3 (140-440); RDW Standard Deviation 41.3 fL (35.1-43.9); Red Blood Count 3.92 Miln/mm3 (4.50-5.90); White Blood Count 3.3 Thou/mm3 (3.8-10.6)
--- NOTE | 2024-06-29 17:36 | PD.RESEVENT ---
Documentation for date of: 06/29/24 Event Note Event Note: Received sign-out from Dr. Young, ICU Resident PGY 2. In short, patient is a 34 year old male with no known PMH who presents to the ER for nausea, vomiting, diarrhea x 5 days and found to be in DKA. He was admitted to the ICU for insulin drip. The anion gap closed, and his blood sugars improved. He was transitioned from insulin drip to subQ insulin, and is stable to be downgraded to the floor. The ICU team started workup for the new onset diabetes and we will recommend the patient to follow up with his PCP outpatient after discharge if the results do not return while he is inpatient. Phyllis Vargas MD PGY-3
[2024-06-29] MEDS: POTASSIUM CHLORIDE 20 mEq TABCR 40 MEQ PO ×4 (17:51→20:59)
[2024-06-29] MEDS: INSULIN LISPRO (AdmeLOG) 1 UNIT/0.01 ML UNIT 7 UNIT SC (17:51)
[2024-06-29] MEDS: Magnesium Sulfate 4 GM Ivpb 4 GM/50 ML BAG IV (18:08)
[2024-06-29 19:44] LABS: Misc Send Out* See Sep Rpt
[2024-06-29 20:03] LABS: Albumin, Serum 3.9 gm/dL (3.5-5.0); Anion Gap 9 (7-16); BUN/Creatinine Ratio 6 Ratio (12-20); Blood Urea Nitrogen < 5 mg/dL (9-23); Calcium 9.4 mg/dL (8.3-10.6); Calcium (Corrected) 9.5 mg/dL (8.5-10.1); Carbon Dioxide 26.1 mMol/L (20.0-31.0); Chloride 102 mMol/L (98-107); Creatinine (Component) 0.9 mg/dL (0.6-1.3); Estimated Creatinine Clearance 118.8 mL/min (>60); Glucose 110 mg/dL (74-106); Magnesium 1.6 mg/dL (1.6-2.6); Osmolality,Calculated 272 (275-295); Phosphorous 2.2 mg/dL (2.4-5.1); Potassium 3.3 mMol/L (3.4-5.1); Sodium 137 mMol/L (136-145); eGFR > 60 See Note
[2024-06-29] MEDS: NAPH,KPH MBDB 1 PACKET (1.5 GM) PO (20:59)
[2024-06-30] VITALS: BP 99/62; PULSE 83; RESP 19; TEMP 36.5; O2SAT 98
[2024-06-30 00:57] LABS: Albumin, Serum 3.6 gm/dL (3.5-5.0); Anion Gap 8 (7-16); BUN/Creatinine Ratio 6 Ratio (12-20); Blood Urea Nitrogen < 5 mg/dL (9-23); Calcium 9.2 mg/dL (8.3-10.6); Calcium (Corrected) 9.5 mg/dL (8.5-10.1); Carbon Dioxide 26.2 mMol/L (20.0-31.0); Chloride 103 mMol/L (98-107); Creatinine (Component) 0.8 mg/dL (0.6-1.3); Estimated Creatinine Clearance 133.6 mL/min (>60); Glucose 172 mg/dL (74-106); Osmolality,Calculated 275 (275-295); Phosphorous 4.8 mg/dL (2.4-5.1); Potassium 4.2 mMol/L (3.4-5.1); Sodium 137 mMol/L (136-145); eGFR > 60 See Note
[2024-06-30] MEDS: POT PHOS 15 mMol in NS 250 ML 15 MMOL/250 ML BAG 62.5 MMOL IV (01:37)
[2024-06-30 04:00] VITALS: BP 93/72; PULSE 79; RESP 16; TEMP 36.2; O2SAT 99
[2024-06-30 06:00] VITALS: BMI 30.2
[2024-06-30 06:09] LABS: Basophils % (Auto) 0 % (0-2.5); Eosinophils # (Auto) 0.1 Thou/mm3 (0.0-0.5); Eosinophils % (Auto) 4 % (0-10); Hematocrit 34.6 % (41.0-53.0); Hemoglobin 12.4 g/dL (13.5-16.0); Immature Granulocytes % (Auto) 1 % (0-0); Immature Granulocytes Auto 0.02 Thou/mm3 (0.00-0.00); Lymphocytes % (Auto) 30 % (10-50); Mean Corpuscular HGB Conc 35.8 g/dl (31.0-37.0); Mean Corpuscular Hemoglobin 33.5 pg (25.0-35.0); Mean Corpuscular Volume 94 fL (80-100); Monocytes # (Auto) 0.4 Thou/mm3 (0.0-0.8); Monocytes % (Auto) 12 % (0-12); Neutrophils # (Auto) 1.8 Thou/mm3 (1.8-7.7); Neutrophils % (Auto) 53 % (37-80); Nucleated Red Blood Cell % 0 /100 WBC (0); Platelet Count 94 Thou/mm3 (140-440); RDW Standard Deviation 42.3 fL (35.1-43.9); White Blood Count 3.4 Thou/mm3 (3.8-10.6)
[2024-06-30 07:25] LABS: Alanine Aminotransferase 147 U/L (10-49); Albumin, Serum 3.5 gm/dL (3.5-5.0); Albumin/Globulin Ratio 1.6 (1.2-2.2); Alkaline Phosphatase 63 U/L (46-116); Anion Gap 9 (7-16); Aspartate Amino Transferase 122 U/L (0-34); BUN/Creatinine Ratio 6 Ratio (12-20); Bilirubin,Total 0.5 mg/dL (0.3-1.2); Blood Urea Nitrogen < 5 mg/dL (9-23); Calcium 9.2 mg/dL (8.3-10.6); Calcium (Corrected) 9.6 mg/dL (8.5-10.1); Carbon Dioxide 25.8 mMol/L (20.0-31.0); Cardiac Risk Estimate 8.7 RATIO (4.0-6.7); Chloride 103 mMol/L (98-107); Cholesterol 341 mg/dL (132-200); Creatinine (Component) 0.8 mg/dL (0.6-1.3); Estimated Creatinine Clearance 134.5 mL/min (>60); Globulin 2.2 gm/dL (2.3-3.5); Glucose 210 mg/dL (74-106); HDL Cholesterol 39 mg/dL (40-60); LDL Cholesterol,Calculated 272 mg/dL (0-130); Magnesium 2.4 mg/dL (1.6-2.6); Osmolality,Calculated 278 (275-295); Phosphorous 5.1 mg/dL (2.4-5.1); Potassium 4.2 mMol/L (3.4-5.1); Sodium 138 mMol/L (136-145); Total Protein 5.7 gm/dL (5.7-8.2); Triglycerides 150 mg/dL (30-150); eGFR > 60 See Note
[2024-06-30 08:00] VITALS: BP 108/76; PULSE 79; RESP 15; TEMP 36.1; O2SAT 99
[2024-06-30] MEDS: NAPH,KPH MBDB 1 PACKET (1.5 GM) PO ×2 (08:01→20:47)
[2024-06-30] MEDS: ENOXAPARIN SOD INJ 40 MG/0.4 ML SYRINGE SC (08:06)
[2024-06-30] MEDS: INSULIN LISPRO (AdmeLOG) 1 UNIT/0.01 ML UNIT SC ×4 (08:07→20:46)
[2024-06-30] MEDS: INSULIN LISPRO (AdmeLOG) 1 UNIT/0.01 ML UNIT 7 UNIT SC ×3 (08:11→17:23)
[2024-06-30] MEDS: INSULIN GLARGINE (Lantus) 5 UNIT/0.05 ML (PER 5 UNITS) 20 UNIT SC (08:12)
--- NOTE | 2024-06-30 09:06 | PC.SS ---
SS follow up note; ICU down grade, possible discharge today or tomorrow.
--- NOTE | 2024-06-30 10:04 | XR_ITS ---
Examination: Abdomen sonogram, Limited Date and time of exam: June 30, 2024 1229 hours INDICATIONS: Elevated liver function tests on laboratory examination today Technique: Real-time feliciano scale transabdominal sonographic images of the upper abdomen obtained. Findings: Contracted gallbladder Gallbladder wall 0.4 cm Common bile duct 0.4 cm Pancreatic head 2.9 cm Liver 16.9 cm fatty infiltration Normal hepatopedal portal venous flow Patent IVC IMPRESSION: Repeat the gallbladder portion of this study with fasting
[2024-06-30] MEDS: EZETIMIBE 10 MG TABLET PO (11:39)
[2024-06-30 11:54] LABS: Hepatitis A Antibody IgM Non Reactive (Non React); Hepatitis B Core Antibody IgM Non Reactive (Non React); Hepatitis B Surface Antigen Non Reactive (Non React); Hepatitis C Antibody Non Reactive (Non React)
[2024-06-30 12:00] VITALS: BP 106/79; PULSE 92; RESP 16; TEMP 36.2; O2SAT 99
[2024-06-30 12:14] LABS: HIV (1&2) Antibody Rapid Non-Reactive
--- NOTE | 2024-06-30 12:33 | ESPR_ITS ---
Documentation for date of: 06/30/24 Subjective Subjective Interval history: Patient seen and examined at bedside this morning. He was downgraded from the ICU overnight for DKA. No acute overnight events. Vitals, labs reviewed. Vital signs stable. CHEM panel significant for FBG 210, although on chart review, patient did not receive Lantus at bedtime last night but received 20 units this morning. Will follow [id number] blood glucose throughout the day. Cholesterol/LDL noted to be elevated, however due to increased LFTs, will start Zetia instead of statin. Will also obtain liver ultrasound, hepatitis panel and HIV for further workup of transaminitis. At bedside, patient has no acute complaints. He denies any nausea, vomiting, abdominal pain. He is tolerating diet. Counseled patient extensively on importance of tight glycemic control. Patient expresses that he would wish to follow with [facility]. Contact information provided to schedule a follow-up appointment. Exam Vital Signs Temp Pulse Resp BP Pulse Ox O2 Del Method 97.2 F 92 16 106/79 99 Room Air 06/30/24 12:00 06/30/24 12:00 06/30/24 12:00 06/30/24 12:00 06/30/24 12:00 06/30/24 12:00 Narrative Exam Gen: AAOx3, resting comfortably, answers questions appropriately, pleasant to speak with HEENT: NCAT, PERRLA, EOMI, MMM, no LAD CVS: normal S1, S2. RRR. No MRG Resp: CTA B/L. No rhonchi, rales, crackles or wheezing Abd: soft, non-tender, non-distended. BS+ in all 4 quadrants MSK: Good ROM in BUE & BLE. No edema or rash. Neuro: CN II-XII grossly intact. Strength 5/5 in BUE & BLE. Objective Labs 06/30/24 05:15 06/30/24 05:15 Labs: Laboratory Results - last 24 hr 06/29/24 06/29/24 06/29/24 15:07 15:07 15:07 WBC 3.3 L RBC 3.92 L Hgb 13.0 L Hct 35.6 L MCV 91 MCH 33.2 MCHC 36.5 RDW Std Deviation 41.3 Plt Count 103 L Neut % (Auto) 63 Lymph % (Auto) 24 [place] % (Auto) 11 Eos % (Auto) 2 Baso % (Auto) 0 Neut # (Auto) 2.1 Lymph # (Auto) 0.8 L [place] # (Auto) 0.4 Eos # (Auto) 0.1 Baso # (Auto) 0.0 Immature Gran # (Auto) 0.02 H Absolute Nucleated RBC 0.00 Immature Gran % 1 H Nucleated RBC % 0 Sodium 132 L Cancelled Potassium 3.1 L Cancelled Chloride 99 Carbon Dioxide Anion Gap BUN Creatinine Estim Creat Clear Calc eGFR BUN/Creatinine Ratio Glucose Calculated Osmolality Calcium Corrected Calcium Phosphorus Magnesium Total Bilirubin AST ALT Alkaline Phosphatase Total Protein Albumin Globulin Albumin/Globulin Ratio Triglycerides Cholesterol LDL Cholesterol, Calc HDL Cholesterol Cholesterol/HDL Ratio Hepatitis A IgM Ab Hep Bs Antigen Hep B Core IgM Ab Hepatitis C Antibody HIV 1&2 Antibody Rapid 06/29/24 06/29/24 06/29/24 15:07 15:07 15:07 WBC RBC Hgb Hct MCV MCH MCHC RDW Std Deviation Plt Count Neut % (Auto) Lymph % (Auto) [place] % (Auto) Eos % (Auto) Baso % (Auto) Neut # (Auto) Lymph # (Auto) [place] # (Auto) Eos # (Auto) Baso # (Auto) Immature Gran # (Auto) Absolute Nucleated RBC Immature Gran % Nucleated RBC % Sodium Potassium Chloride Cancelled Carbon Dioxide 21.2 Cancelled Anion Gap 12 Cancelled BUN < 5 L Creatinine Estim Creat Clear Calc eGFR BUN/Creatinine Ratio Glucose Calculated Osmolality Calcium Corrected Calcium Phosphorus Magnesium Total Bilirubin AST ALT Alkaline Phosphatase Total Protein Albumin Globulin Albumin/Globulin Ratio Triglycerides Cholesterol LDL Cholesterol, Calc HDL Cholesterol Cholesterol/HDL Ratio Hepatitis A IgM Ab Hep Bs Antigen Hep B Core IgM Ab Hepatitis C Antibody HIV 1&2 Antibody Rapid 06/29/24 06/29/24 06/29/24 15:07 15:07 15:07 WBC RBC Hgb Hct MCV MCH MCHC RDW Std Deviation Plt Count Neut % (Auto) Lymph % (Auto) [place] % (Auto) Eos % (Auto) Baso % (Auto) Neut # (Auto) Lymph # (Auto) [place] # (Auto) Eos # (Auto) Baso # (Auto) Immature Gran # (Auto) Absolute Nucleated RBC Immature Gran % Nucleated RBC % Sodium Potassium Chloride Carbon Dioxide Anion Gap BUN Cancelled Creatinine 0.9 Cancelled Estim Creat Clear Calc 118.8 Cancelled eGFR > 60 BUN/Creatinine Ratio Glucose Calculated Osmolality Calcium Corrected Calcium Phosphorus Magnesium Total Bilirubin AST ALT Alkaline Phosphatase Total Protein Albumin Globulin Albumin/Globulin Ratio Triglycerides Cholesterol LDL Cholesterol, Calc HDL Cholesterol Cholesterol/HDL Ratio Hepatitis A IgM Ab Hep Bs Antigen Hep B Core IgM Ab Hepatitis C Antibody HIV 1&2 Antibody Rapid 06/29/24 06/29/24 06/29/24 15:07 15:07 15:07 WBC RBC Hgb Hct MCV MCH MCHC RDW Std Deviation Plt Count Neut % (Auto) Lymph % (Auto) [place] % (Auto) Eos % (Auto) Baso % (Auto) Neut # (Auto) Lymph # (Auto) [place] # (Auto) Eos # (Auto) Baso # (Auto) Immature Gran # (Auto) Absolute Nucleated RBC Immature Gran % Nucleated RBC % Sodium Potassium Chloride Carbon Dioxide Anion Gap BUN Creatinine Estim Creat Clear Calc eGFR Cancelled BUN/Creatinine Ratio 6 L Cancelled Glucose 221 H D Cancelled Calculated Osmolality 268 L Calcium Corrected Calcium Phosphorus Magnesium Total Bilirubin AST ALT Alkaline Phosphatase Total Protein Albumin Globulin Albumin/Globulin Ratio Triglycerides Cholesterol LDL Cholesterol, Calc HDL Cholesterol Cholesterol/HDL Ratio Hepatitis A IgM Ab Hep Bs Antigen Hep B Core IgM Ab Hepatitis C Antibody HIV 1&2 Antibody Rapid 06/29/24 06/29/24 06/29/24 15:07 15:07 15:07 WBC RBC Hgb Hct MCV MCH MCHC RDW Std Deviation Plt Count Neut % (Auto) Lymph % (Auto) [place] % (Auto) Eos % (Auto) Baso % (Auto) Neut # (Auto) Lymph # (Auto) [place] # (Auto) Eos # (Auto) Baso # (Auto) Immature Gran # (Auto) Absolute Nucleated RBC Immature Gran % Nucleated RBC % Sodium Potassium Chloride Carbon Dioxide Anion Gap BUN Creatinine Estim Creat Clear Calc eGFR BUN/Creatinine Ratio Glucose Calculated Osmolality Cancelled Calcium 8.6 Cancelled Corrected Calcium 8.6 Phosphorus 2.6 Cancelled Magnesium 1.7 Total Bilirubin AST ALT Alkaline Phosphatase Total Protein Albumin Globulin Albumin/Globulin Ratio Triglycerides Cholesterol LDL Cholesterol, Calc HDL Cholesterol Cholesterol/HDL Ratio Hepatitis A IgM Ab Hep Bs Antigen Hep B Core IgM Ab Hepatitis C Antibody HIV 1&2 Antibody Rapid 06/29/24 06/29/24 06/30/24 15:07 19:22 00:20 WBC RBC Hgb Hct MCV MCH MCHC RDW Std Deviation Plt Count Neut % (Auto) Lymph % (Auto) [place] % (Auto) Eos % (Auto) Baso % (Auto) Neut # (Auto) Lymph # (Auto) [place] # (Auto) Eos # (Auto) Baso # (Auto) Immature Gran # (Auto) Absolute Nucleated RBC Immature Gran % Nucleated RBC % Sodium 137 137 Potassium 3.3 L 4.2 D Chloride 102 103 Carbon Dioxide 26.1 26.2 Anion Gap 9 8 BUN < 5 L < 5 L Creatinine 0.9 0.8 Estim Creat Clear Calc 118.8 133.6 eGFR > 60 > 60 BUN/Creatinine Ratio 6 L 6 L Glucose 110 H D 172 H D Calculated Osmolality 272 L 275 Calcium 9.4 9.2 Corrected Calcium 9.5 9.5 Phosphorus 2.2 L 4.8 Magnesium Cancelled 1.6 Total Bilirubin AST ALT Alkaline Phosphatase Total Protein Albumin 4.0 3.9 3.6 Globulin Albumin/Globulin Ratio Triglycerides Cholesterol LDL Cholesterol, Calc HDL Cholesterol Cholesterol/HDL Ratio Hepatitis A IgM Ab Hep Bs Antigen Hep B Core IgM Ab Hepatitis C Antibody HIV 1&2 Antibody Rapid 06/30/24 05:15 WBC 3.4 L RBC 3.70 L Hgb 12.4 L Hct 34.6 L MCV 94 MCH 33.5 MCHC 35.8 RDW Std Deviation 42.3 Plt Count 94 L Neut % (Auto) 53 Lymph % (Auto) 30 [place] % (Auto) 12 Eos % (Auto) 4 Baso % (Auto) 0 Neut # (Auto) 1.8 Lymph # (Auto) 1.0 [place] # (Auto) 0.4 Eos # (Auto) 0.1 Baso # (Auto) 0.0 Immature Gran # (Auto) 0.02 H Absolute Nucleated RBC 0.00 Immature Gran % 1 H Nucleated RBC % 0 Sodium 138 Potassium 4.2 Chloride 103 Carbon Dioxide 25.8 Anion Gap 9 BUN < 5 L Creatinine 0.8 Estim Creat Clear Calc 134.5 eGFR > 60 BUN/Creatinine Ratio 6 L Glucose 210 H Calculated Osmolality 278 Calcium 9.2 Corrected Calcium 9.6 Phosphorus 5.1 Magnesium 2.4 Total Bilirubin 0.5 AST 122 H ALT 147 H Alkaline Phosphatase 63 D Total Protein 5.7 Albumin 3.5 Globulin 2.2 L Albumin/Globulin Ratio 1.6 Triglycerides 150 Cholesterol 341 H LDL Cholesterol, Calc 272 H HDL Cholesterol 39 L Cholesterol/HDL Ratio 8.7 H Hepatitis A IgM Ab Non Reactive Hep Bs Antigen Non Reactive Hep B Core IgM Ab Non Reactive Hepatitis C Antibody Non Reactive HIV 1&2 Antibody Rapid Non-Reactive ABG Interpretation ABG results: 06/27/24 06/27/24 16:40 16:56 ABG pH 7.12 L* ABG pCO2 11 L* ABG pO2 136 H ABG HCO3 4 L* ABG O2 Saturation 100 H ABG Base Excess -23 L VBG pH 7.08 L VBG pCO2 22 L VBG pO2 29 VBG Base Excess -22 L Quality Measures Quality Measures VTE prophylaxis Assessment & Plan Assessment Current Active Medications: Generic Name Dose Route Start Last Admin Trade Name Freq PRN Reason Stop Dose Admin Dextrose 25 ml 06/27/24 16:02 Dextrose 50%-Water Inj 50 Ml Syringe IV [id number] PRN Blood Sugar - Low Dextrose 25 ml 06/29/24 11:23 Dextrose 50%-Water Inj 50 Ml Syringe IV 07/29/24 11:22 Q15MIN PRN BG 50-70 responsive npo pt Dextrose 50 ml 06/29/24 11:23 Dextrose 50%-Water Inj 50 Ml Syringe IV 07/29/24 11:22 Q15MIN PRN BG <50 OR BG <70 & pt unresponsive Ezetimibe 10 mg 06/30/24 10:15 06/30/24 11:39 Ezetimibe 10 Mg Tablet PO 07/30/24 10:14 10 mg QDAY GINA Administration Enoxaparin Sodium 40 mg 06/28/24 09:00 06/30/24 08:06 Enoxaparin Sod Inj 40 Mg/0.4 Ml Syringe SC 07/12/24 08:59 40 mg QDAY GINA Administration Insulin Glargine 20 unit 06/30/24 09:00 06/30/24 08:12 Insulin Glargine (Lantus) 5 Unit/0.05 Ml (Per 5 Units) SC 07/30/24 08:59 20 unit QDAY GINA Administration Insulin Human Lispro 7 unit 06/29/24 17:30 06/30/24 11:44 Insulin Lispro (Admelog) 1 Unit/0.01 Ml Unit SC 07/29/24 17:29 7 unit TIDWM GINA Administration Insulin Human Lispro 0 unit 06/29/24 16:42 06/30/24 11:40 Insulin Lispro (Admelog) 1 Unit/0.01 Ml Unit SC 07/29/24 11:29 4 unit ACHS GINA Administration Protocol Ondansetron HCl 4 mg 06/27/24 17:37 Ondansetron Inj 2 Mg/Ml Inj 2 Ml IV 07/27/24 17:36 Q6HR PRN NAUSEA OR VOMITING Protocol Potassium Phos/Sodium Phos 1 packet 06/29/24 21:00 06/30/24 08:01 Naph,[facility] Mbdb 1 Packet (1.5 Gm) PO 07/01/24 23:00 1 packet BID GINA Administration Plan Patient is a 34-year-old male without any past medical history who presented with nausea, vomiting and diarrhea. He was admitted to the ICU for DKA protocol, as labs revealed bicarb <10, anion gap of 22, glucose of 350 and BHB of 6.4. Patient was started on IV fluids, IV insulin and electrolyte replacement protocol, and started on subcutaneous insulin on 06/29. He was stable for downgrade with hospitalist team assuming care on 06/30. Counseled patient extensively on importance of tight glycemic control. Noted LFTs increasing, therefore liver ultrasound was ordered. Noted LDL and elevated total cholesterol, therefore patient was started on Zetia and lieu of statins with transaminitis. #New onset diabetes #DKA, resolved #Anion gap metabolic acidosis, resolved #Electrolyte abnormalities, resolved Patient presented with DKA without any history of diabetes. Once off of DKA protocol, patient was transition to subcutaneous insulin for hospitalist team to assume care on 06/30 A1c 11.7% Patient receiving Lantus 20 units every morning and sliding scale insulin; hypoglycemia protocol in place; [facility] Dietitian consulted for diabetic education Patient was encouraged to follow-up at [facility] for further management of diabetes. Additionally patient will need to follow-up for results of ROB antibody #Transaminitis #Concern for NAFLD LFTs noted to increase with ALT 147, AST 122. Patient with diabetes, hyperlipidemia, endorses chronic drinking history, and family history of diabetes in brother Follow-up liver ultrasound Follow-up acute hepatitis panel, HIV testing #Hyperlipidemia #Metabolic syndrome Total cholesterol 341, LDL 272, HDL 35 Due to transaminitis, will defer starting statins, therefore patient started on Zetia #Alcohol abuse #Nicotine dependence Patient endorses having 3-5 tall cans of beer daily, with last drink on 06/23/2024 Low concern for alcohol withdrawal at this time Patient was counseled against drinking, and using tobacco Nicotine patch was offered, patient declined Dispo: Patient downgraded from ICU for DKA. Anticipate DC in 24 hours to control blood sugars; follow-up liver ultrasound, hepatitis panel, HIV testing GI PPx: None DVT PPx: Lovenox Diet: Low carb consistent CODE STATUS: Full code Patient seen and care discussed with my attending Dr. Wells. Yolande Jimenez MD PGY-3 Attending Provider Attestation/Addendum I have discussed and was present for the essential components of the history, physical examination, diagnosis, and treatment plan with the resident. I agree with the patient's care as documented by the resident and amended herein by me. Portillo Wells DO. Although this document has been carefully reviewed, there may still be some phonetic and other typographical errors. These errors are purely grammatical due to imperfections in the software program and should not be construed in any way to compromise the substance of the patient's medical care during this visit.
[2024-06-30 16:00] VITALS: BP 100/76; PULSE 89; RESP 16; TEMP 36.7; O2SAT 97
[2024-06-30 20:00] VITALS: BP 107/70; PULSE 104; RESP 18; TEMP 36.2; O2SAT 100
[2024-07-01] VITALS: BP 99/62; PULSE 75; RESP 18; TEMP 36.2; O2SAT 98
[2024-07-01 04:00] VITALS: BP 93/58; PULSE 77; RESP 18; TEMP 36.2; O2SAT 98
[2024-07-01 05:58] LABS: Basophils % (Auto) 1 % (0-2.5); Eosinophils # (Auto) 0.2 Thou/mm3 (0.0-0.5); Eosinophils % (Auto) 4 % (0-10); Hematocrit 34.5 % (41.0-53.0); Hemoglobin 12.3 g/dL (13.5-16.0); Immature Granulocytes % (Auto) 1 % (0-0); Immature Granulocytes Auto 0.02 Thou/mm3 (0.00-0.00); Lymphocytes # (Auto) 1.4 Thou/mm3 (1.0-4.8); Lymphocytes % (Auto) 35 % (10-50); Mean Corpuscular HGB Conc 35.7 g/dl (31.0-37.0); Mean Corpuscular Hemoglobin 33.2 pg (25.0-35.0); Mean Corpuscular Volume 93 fL (80-100); Monocytes # (Auto) 0.5 Thou/mm3 (0.0-0.8); Monocytes % (Auto) 13 % (0-12); Neutrophils # (Auto) 1.9 Thou/mm3 (1.8-7.7); Neutrophils % (Auto) 47 % (37-80); Nucleated Red Blood Cell % 0 /100 WBC (0); Platelet Count 102 Thou/mm3 (140-440); RDW Standard Deviation 41.5 fL (35.1-43.9); White Blood Count 4.1 Thou/mm3 (3.8-10.6)
[2024-07-01 07:02] LABS: Alanine Aminotransferase 167 U/L (10-49); Albumin, Serum 3.7 gm/dL (3.5-5.0); Albumin/Globulin Ratio 1.7 (1.2-2.2); Alkaline Phosphatase 61 U/L (46-116); Anion Gap 7 (7-16); Aspartate Amino Transferase 146 U/L (0-34); BUN/Creatinine Ratio 9 Ratio (12-20); Bilirubin,Total 0.4 mg/dL (0.3-1.2); Blood Urea Nitrogen 7 mg/dL (9-23); Calcium (Corrected) 9.2 mg/dL (8.5-10.1); Carbon Dioxide 30.6 mMol/L (20.0-31.0); Chloride 99 mMol/L (98-107); Creatinine (Component) 0.8 mg/dL (0.6-1.3); Globulin 2.2 gm/dL (2.3-3.5); Glucose 250 mg/dL (74-106); Magnesium 2.2 mg/dL (1.6-2.6); Osmolality,Calculated 279 (275-295); Phosphorous 4.9 mg/dL (2.4-5.1); Potassium 3.6 mMol/L (3.4-5.1); Sodium 137 mMol/L (136-145); Total Protein 5.9 gm/dL (5.7-8.2); eGFR > 60 See Note
[2024-07-01 08:00] VITALS: BP 105/79; PULSE 95; RESP 17; TEMP 36.7; O2SAT 98
[2024-07-01] MEDS: EZETIMIBE 10 MG TABLET PO (08:06)
[2024-07-01] MEDS: ENOXAPARIN SOD INJ 40 MG/0.4 ML SYRINGE SC (08:06)
[2024-07-01] MEDS: INSULIN LISPRO (AdmeLOG) 1 UNIT/0.01 ML UNIT SC ×2 (08:08→12:02)
[2024-07-01] MEDS: POTASSIUM CHLORIDE 20 mEq TABCR 40 MEQ PO (08:18)
[2024-07-01] MEDS: NAPH,KPH MBDB 1 PACKET (1.5 GM) PO (08:18)
--- NOTE | 2024-07-01 10:58 | PD.RESPRO ---
Documentation for date of: 07/01/24 Subjective Subjective Interval history: Patient seen and examined at bedside this morning. No acute overnight events. Vitals, labs reviewed. Platelet count noted, no acute bleed at this time. Will continue to monitor. FBG 250. Will review SSI and total daily insulin, will make adjustments. At bedside, patient has no acute complaints. Exam Vital Signs Temp Pulse Resp BP Pulse Ox O2 Del Method 98.1 F 95 17 105/79 98 Room Air 07/01/24 08:00 07/01/24 08:00 07/01/24 08:00 07/01/24 08:00 07/01/24 08:00 07/01/24 08:00 Narrative Exam Gen: AAOx3, resting comfortably, answers questions appropriately, pleasant to speak with HEENT: NCAT, PERRLA, EOMI, MMM, no LAD CVS: normal S1, S2. RRR. No MRG Resp: CTA B/L. No rhonchi, rales, crackles or wheezing Abd: soft, non-tender, non-distended. BS+ in all 4 quadrants MSK: Good ROM in BUE & BLE. No edema or rash. Neuro: CN II-XII grossly intact. Strength 5/5 in BUE & BLE. Objective Labs 07/01/24 05:00 07/01/24 05:00 Labs: Laboratory Results - last 24 hr 06/30/24 07/01/24 05:15 05:00 WBC 4.1 RBC 3.70 L Hgb 12.3 L Hct 34.5 L MCV 93 MCH 33.2 MCHC 35.7 RDW Std Deviation 41.5 Plt Count 102 L Neut % (Auto) 47 Lymph % (Auto) 35 [place] % (Auto) 13 H Eos % (Auto) 4 Baso % (Auto) 1 Neut # (Auto) 1.9 Lymph # (Auto) 1.4 [place] # (Auto) 0.5 Eos # (Auto) 0.2 Baso # (Auto) 0.0 Immature Gran # (Auto) 0.02 H Absolute Nucleated RBC 0.00 Immature Gran % 1 H Nucleated RBC % 0 Sodium 137 Potassium 3.6 D Chloride 99 Carbon Dioxide 30.6 Anion Gap 7 BUN 7 L Creatinine 0.8 Estim Creat Clear Calc 138.0 eGFR > 60 BUN/Creatinine Ratio 9 L Glucose 250 H Calculated Osmolality 279 Calcium 9.0 Corrected Calcium 9.2 Phosphorus 4.9 Magnesium 2.2 Total Bilirubin 0.4 AST 146 H ALT 167 H Alkaline Phosphatase 61 Total Protein 5.9 Albumin 3.7 Globulin 2.2 L Albumin/Globulin Ratio 1.7 Hepatitis A IgM Ab Non Reactive Hep Bs Antigen Non Reactive Hep B Core IgM Ab Non Reactive Hepatitis C Antibody Non Reactive HIV 1&2 Antibody Rapid Non-Reactive ABG Interpretation ABG results: 06/27/24 06/27/24 16:40 16:56 ABG pH 7.12 L* ABG pCO2 11 L* ABG pO2 136 H ABG HCO3 4 L* ABG O2 Saturation 100 H ABG Base Excess -23 L VBG pH 7.08 L VBG pCO2 22 L VBG pO2 29 VBG Base Excess -22 L Quality Measures Quality Measures VTE prophylaxis Assessment & Plan Assessment Current Active Medications: Generic Name Dose Route Start Last Admin Trade Name Freq PRN Reason Stop Dose Admin Dextrose 25 ml 06/27/24 16:02 Dextrose 50%-Water Inj 50 Ml Syringe IV [id number] PRN Blood Sugar - Low Dextrose 25 ml 06/29/24 11:23 Dextrose 50%-Water Inj 50 Ml Syringe IV 07/29/24 11:22 Q15MIN PRN BG 50-70 responsive npo pt Dextrose 50 ml 06/29/24 11:23 Dextrose 50%-Water Inj 50 Ml Syringe IV 07/29/24 11:22 Q15MIN PRN BG <50 OR BG <70 & pt unresponsive Ezetimibe 10 mg 06/30/24 10:15 07/01/24 08:06 Ezetimibe 10 Mg Tablet PO 07/30/24 10:14 10 mg QDAY GINA Administration Enoxaparin Sodium 40 mg 06/28/24 09:00 07/01/24 08:06 Enoxaparin Sod Inj 40 Mg/0.4 Ml Syringe SC 07/12/24 08:59 40 mg QDAY GINA Administration Insulin Glargine 25 unit 07/01/24 21:00 Insulin Glargine (Lantus) 5 Unit/0.05 Ml (Per 5 Units) SC 07/31/24 20:59 [facility] Insulin Human Lispro 0 unit 06/29/24 16:42 07/01/24 08:08 Insulin Lispro (Admelog) 1 Unit/0.01 Ml Unit SC 07/29/24 11:29 4 unit ACHS GINA Administration Protocol Insulin Human Lispro 10 unit 07/01/24 12:00 Insulin Lispro (Admelog) 1 Unit/0.01 Ml Unit SC 07/31/24 11:59 TIDWM [facility] Ondansetron HCl 4 mg 06/27/24 17:37 Ondansetron Inj 2 Mg/Ml Inj 2 Ml IV 07/27/24 17:36 Q6HR PRN NAUSEA OR VOMITING Protocol Potassium Phos/Sodium Phos 1 packet 06/29/24 21:00 07/01/24 08:18 Naph,[facility] Mbdb 1 Packet (1.5 Gm) PO 07/01/24 23:00 1 packet BID GINA Administration Plan Patient is a 34-year-old male without any past medical history who presented with nausea, vomiting and diarrhea. He was admitted to the ICU for DKA protocol, as labs revealed bicarb <10, anion gap of 22, glucose of 350 and BHB of 6.4. Patient was started on IV fluids, IV insulin and electrolyte replacement protocol, and started on subcutaneous insulin on 06/29. He was stable for downgrade with hospitalist team assuming care on 06/30. Counseled patient extensively on importance of tight glycemic control. Noted LFTs increasing, therefore liver ultrasound was ordered. Noted LDL and elevated total cholesterol, therefore patient was started on Zetia and lieu of statins with transaminitis. #New onset diabetes #DKA, resolved #Anion gap metabolic acidosis, resolved #Electrolyte abnormalities, resolved Patient presented with DKA without any history of diabetes. Once off of DKA protocol, patient was transition to subcutaneous insulin for hospitalist team to assume care on 06/30 A1c 11.7% Lantus increased to 25 units at bedtime; mealtime lispro increased to 12 units 3 times daily with meals; continue SSI Hypoglycemia protocol in place; [facility] Dietitian consulted for diabetic education => will get CGM on discharge Patient was encouraged to follow-up at [facility] for further management of diabetes. Additionally patient will need to follow-up for results of ROB antibody 07/01: FBG 250, POC overnight 198?278 #Transaminitis #Concern for NAFLD LFTs noted to increase with ALT 147, AST 122. Patient with diabetes, hyperlipidemia, endorses chronic drinking history, and family history of diabetes in brother Liver ultrasound: Significant fatty liver Negative hepatitis panel, HIV testing #Hyperlipidemia #Metabolic syndrome Total cholesterol 341, LDL 272, HDL 35 Due to transaminitis, will defer starting statins, therefore patient started on Zetia #Alcohol abuse #Nicotine dependence Patient endorses having 3-5 tall cans of beer daily, with last drink on 06/23/2024 Low concern for alcohol withdrawal at this time Patient was counseled against drinking, and using tobacco Nicotine patch was offered, patient declined Dispo: Pending better control of blood sugars; insulin regimen has been increased. Anticipate discharge in 24 hours GI PPx: None DVT PPx: Lovenox Diet: Low carb consistent CODE STATUS: Full code Patient seen and care discussed with my attending Dr. Wells. Yolande Jimenez MD PGY-3 Attending Provider Attestation/Addendum I have discussed and was present for the essential components of the history, physical examination, diagnosis, and treatment plan with the resident. I agree with the patient's care as documented by the resident and amended herein by me. Portillo Wells DO. Although this document has been carefully reviewed, there may still be some phonetic and other typographical errors. These errors are purely grammatical due to imperfections in the software program and should not be construed in any way to compromise the substance of the patient's medical care during this visit.
[2024-07-01 12:00] VITALS: BP 99/71; PULSE 97; RESP 17; TEMP 36.2; O2SAT 96
[2024-07-01] MEDS: INSULIN LISPRO (AdmeLOG) 1 UNIT/0.01 ML UNIT 10 UNIT SC (12:09)
[2024-07-01 16:00] VITALS: BP 100/71; PULSE 88; RESP 17; TEMP 37.1; O2SAT 99
--- NOTE | 2024-07-01 16:08 | PD.RESDS ---
Planned Discharge Date 07/01/24 DS: Providers Provider Date of admission: 06/27/24 16:02 Primary care physician: Jared Jesus MD Admitting Provider: Jose Daniel Delgadillo MD Attending Provider on Admission: Jose Daniel Delgadillo MD Consults: 06/27/24 16:02 Referral Registered Dietitian Routine Comment: 06/27/24 20:31 Referral Registered Dietitian Urgent Comment: Attending Provider on DC: Yolande Jimenez MD Discharging Provider: Yolande Jimenez MD DS: Diagnosis Problem List Completed Was Problem List Reviewed/Reconciled?: Yes Hospital Course Hospital Course Hospital course: Patient is a 34-year-old male without any past medical history who presented with nausea, vomiting and diarrhea. Initial labs revealed bicarb <10, anion gap of 22, glucose of 350 and BHB of 6.4. Patient was found to be in DKA and admitted to the ICU for DKA protocol with IV fluids, IV insulin and electrolyte replacement protocol. Once gap closed x 2, patient was transitioned to subcutaneous insulin and downgraded to hospitalist team on 06/30. LFTs were also elevated, therefore liver ultrasound was ordered which revealed fatty liver. Cholesterol was also elevated with LDL 272. Patient was started on Zetia and lieu of statin. On day of discharge, patient's blood sugar was within acceptable limits. He will be discharged on Lantus 25 units at bedtime, metformin 500 mg twice daily and CGM. Patient was encouraged to follow-up at the [facility] for further management of type 2 diabetes, hyperlipidemia, transaminitis. He was also counseled against using alcohol and nicotine substances. #New onset diabetes #DKA, resolved #Anion gap metabolic acidosis, resolved #Electrolyte abnormalities, resolved #Transaminitis #Concern for NAFLD #HLD #Metabolic syndrome #Alcohol abuse #Nicotine dependence Patient seen and care discussed with my attending Dr. Wells. Yolande Jimneez MD PGY-3 Status at Discharge Cognitive/behavioral status at discharge: AAOx3 Time Spent with Patient Time attestation: Total time spent providing and/or coordinating discharge services: Time spent: Greater than 30 minutes Exam Vital Signs Temp Pulse Resp BP Pulse Ox O2 Del Method 97.1 F 97 17 99/71 96 Room Air 07/01/24 12:00 07/01/24 12:00 07/01/24 12:00 07/01/24 12:00 07/01/24 12:00 07/01/24 12:00 Narrative Exam Gen: AAOx3, resting comfortably, answers questions appropriately, pleasant to speak with HEENT: NCAT, PERRLA, EOMI, MMM, no LAD CVS: normal S1, S2. RRR. No MRG Resp: CTA B/L. No rhonchi, rales, crackles or wheezing Abd: soft, non-tender, non-distended. BS+ in all 4 quadrants MSK: Good ROM in BUE & BLE. No edema or rash. Neuro: CN II-XII grossly intact. Strength 5/5 in BUE & BLE. Discharge Plan Plan Patient Disposition: HOME (Self Care) Disposition Comment: Stable Patient condition on transfer: Stable Care Plan Goals: Follow-up at [facility] with Dr. Salgado. Can call [phone] to make an appointment. You can see Dr. Jimenez on 07/03/2024 afternoon. You will need to follow-up on results of ROB antibody testing and further managed for diabetes. You have been discharged on 25 units Lantus every night, metformin 500 mg twice daily, and a continuous glucose monitor to check your blood sugars. Additionally have been discharged on ezetimibe. You can follow-up with PCP and once your liver enzymes are within normal limits, would advise to switch to a statin Refrain from drinking and smoking Prescriptions/Referrals Prescriptions/Med Rec: New (DME) FreeStyle Aileen 3 Plus Sensor Device See Rx Instructions .Route Qty: 2 0RF Rx Instructions: As directed for monitoring of blood sugar ezetimibe 10 mg Tablet 10 mg PO QDAY 30 Days Qty: 30 0RF (DME) pen needle, diabetic 29 gauge x 1/2 needle See Rx Instructions .Route Qty: 100 0RF Rx Instructions: As directed metformin 500 mg tablet 500 mg PO BIDWMEAL 30 Days Qty: 60 0RF insulin glargine [Basaglar KwikPen U-100 Insulin] 100 unit/mL (3 mL) insulin pen 25 unit subcut HS 30 Days Qty: 7.5 0RF Referrals: Jared Jesus MD [Primary Care Provider] - Zan Salgado MD [Resident] - None Patient/Caregiver Discharge Instructions Discharge Activity: activity as tolerated Education Materials: CGM, Insulin How to Use and Where to Inject, Managing Diabetes: The A1C Test, Diabetes: Ways to Take Medicine Print Language: Maori Stand Alone Forms: Rima Award Info., Patient Portal Info Letter Discharge Order Discharge Orders: Discharge (Routine); Ordered 07/01/24 Ordered By: Yolande Jimenez Quality Discharge Quality Measures VTE prophylaxis Attestestation MD Attestation I have discussed and was present for the essential components of the discharge history, physical examination, diagnosis, and discharge treatment plan with the resident. I agree with the patient's discharge care as documented by the resident and amended herein by me. Portillo Wells DO. The patient understood all discharge instructions, all questions were answered satisfactorily. The patient was instructed to return to the Emergency Department is symptoms worsened or persisted. The patient will be discharged with Lantus 25 mg nightly and metformin. Due to the patient's uncontrolled diabetes and high A1c, the patient will need short acting mealtime insulin as well however I will defer this until the patient follows up with our [facility] on 07/03/2023 in which she will be seen by one of the physicians there for further workup and evaluation. The patient understands, he was stable, afebrile, ambulatory and tolerating p.o. intake. Blood glucose well-controlled in the 150s upon discharge. Although this document has been carefully reviewed, there may still be some phonetic and other typographical errors. These errors are purely grammatical due to imperfections in the software program and should not be construed in any way to compromise the substance of the patient's medical care during this visit.
== END 2024-07-01 17:23 | disposition home or self-care (01) | DRG 420 ==
LOC: SERX 15:28 → SERHOLD 16:30 → S2SX 19:40 → S3SX 06-29 16:55
PROVIDERS: Nurse Practitioner Family; Student in an Organized Health Care Education/Training Program; Admitting Provider Internal Medicine Critical Care Medicine; Emergency Provider Emergency Medicine; PCP Family Medicine; Visit Provider Internal Medicine Critical Care Medicine
DX: E11.10 Type 2 diabetes mellitus with ketoacidosis without coma (principal); N17.9 Acute kidney failure, unspecified; E86.0 Dehydration; E86.1 Hypovolemia; E87.1 Hypo-osmolality and hyponatremia; E87.6 Hypokalemia; D75.1 Secondary polycythemia; K76.0 Fatty (change of) liver, not elsewhere classified; E83.42 Hypomagnesemia; E78.5 Hyperlipidemia, unspecified; I10 Essential (primary) hypertension; E87.8 Other disorders of electrolyte and fluid balance, not elsewhere classified; E88.810 Metabolic syndrome; F10.10 Alcohol abuse, uncomplicated; F17.290 Nicotine dependence, other tobacco product, uncomplicated; Z79.4 Long term (current) use of insulin; Z79.84 Long term (current) use of oral hypoglycemic drugs; Z79.899 Other long term (current) drug therapy
CPT/HCPCS: 36415; 36600; 71045; 76705; 80048; 80053; 80061; 80069; 80074; 81001; 82010; 82803; 83036; 83605; 83735; 84100; 84145; 85025; 85730; 86341; 86703; 87040; 87081; 87502; 93005; 96360; 96361; 96374; 99291; J1650; J1815; J2405; J3475; J3480; J7030; J7120; J7121; J7999; A9270

== ENCOUNTER 2024-07-03 13:43 | Outpatient (AMB) | payer MEDICAID, SELFPAY ==
--- NOTE | 2024-07-03 13:53 | PD.RESCLINIC ---
Vital Signs 07/03/24 13:55 Height 1.68 m Height Method Stated Weight 88.11 kg Weight Measurement Method Standing Scale BMI 31.3 BP 110/76 Blood Pressure Source Automatic Cuff Blood Pressure Location Left Upper Arm Position Sitting Respiration 18 Pulse 89 Pulse Source Monitor Temp 97.3 F Temp Source Temporal Artery Scan Pulse Oximetry (%) 97 Oxygen Delivery Method Room Air Allergies/Meds Allergies & Medications Allergies No Known Allergies Allergy (Verified 07/03/24 13:56) Medication Reconciliation blood-glucose sensor (FreeStyle Aileen 3 Plus Sensor device) #2 ea 06/30/24 [Rx Confirmed 07/03/24] ezetimibe 10 mg tablet 10 mg PO QDAY 30 days #30 tabs 06/30/24 [Rx Confirmed 07/03/24] metformin 500 mg tablet 500 mg PO BIDWMEAL 30 days #60 tabs 06/30/24 [Rx Confirmed 07/03/24] pen needle, diabetic 29 gauge x 1/2 #100 ea 06/30/24 [Rx Confirmed 07/03/24] Russellagljose c Ricardo U-100 Insulin 100 unit/mL (3 mL) subcutaneous (insulin glargine) 25 unit (0.25 mL) subcut HS 30 days #7.5 mL 07/01/24 [Rx Confirmed 07/03/24] lisinopril 5 mg tablet 5 mg PO QDAY #30 tabs 07/03/24 [Rx] SAMANTHA Intake Visit Data Collection New Patient or Established: Established Patient (seen at [facility] within 3 years) Seen by Clinical Staff ONLY (RN/MA): No Pain Present Currently: No Pain scale:: 0 Pain Scale Used: [employer] Required: No PCP or OBGYN visit in last 3 months: No Hx Now: No Do You Feel Safe at Home: Yes Authorities Contacted: N/A Smoking Status Smoking Status: Current some day smoker Cessation Counseling Provided: EMILY was advised that quitting smoking is the single most important factor to protect the health of themselves and their family. Discussed the benefits of quitting smoking with patient. Encouraged patient to quit smoking and provided Cessation assistance materials and resources. Tobacco Use: Vapor Cigarette Years smoked: 15 Are you interested in quitting?: Yes Would you like additional Smoking Cessation Counseling?: No Immunization / Flu Flu Vaccine in the Last 12 Months: No Flu Vaccine Exclusion Criteria: No Exclusion Criteria Past Medical History Past Medical History CARDIAC: Negative Congestive Heart Failure RESPIRATORY: Negative Chronic Obstructive Pulmonary Disease (COPD) GENITOURINARY: Negative Renal Disease ENDOCRINE: Negative Diabetes Mellitus Type 1 or Diabetes Mellitus Type 2 Social History SMOKING STATUS: Smoking status: Current some day smoker HOUSING: Housing: House LIVES WITH: Lives With: Family Patient Portal [place] Social History Living Situation History Housing: House Tobacco History Smoking Status: Current some day smoker Domestic Abuse History Do You Feel Safe at Home: Yes Review of Systems Report any current symptoms Only answer those that you have currently: Past Medical History Past Medical History Have you ever been diagnosed with any of the following: Cardiology Problems Congestive Heart Failure: No Respiratory Problems Chronic Obstructive Pulmonary Disease (COPD): No Genital/Urinary Problems Renal Disease: No Endocrine Problems Diabetes Mellitus Type 1: No Diabetes Mellitus Type 2: No History of Present Illness HPI Narrative Patient is a 34-year-old male with new onset diabetes who presented to [facility] with DKA. He was admitted to the ICU for DKA protocol with IV fluids, IV insulin electrolyte replacement protocol. Patient was transition to subcutaneous insulin once anion gap closed x 2, and was discharged on metformin 500 mg twice daily and 25 units Lantus at bedtime. Additionally, patient was started on Zetia in lieu of a statin due to transaminitis for hyperlipidemia. Patient presents to [facility] for follow-up. Patient states he has been taking the Lantus 25 at bedtime and metformin 500 twice daily. Patient states that his CGM sample has not been reading, however he has been checking his blood sugars with glucometer, with his blood sugars ranging between 154 fasting and as high as 254 throughout the day. Patient endorses feeling tired, weak and some blurry vision on the morning when his fasting blood glucose was 154. At this time, patient was advised to continue current regimen to prevent hypoglycemic symptoms. Will send urine protein creatinine ratio and start patient on low-dose lisinopril, as proteinuria is noted on UA. Will have patient follow-up in [facility] 1 month after obtaining CMP, to evaluate liver and kidney function. Will also send podiatry and ophthalmology referrals. Review of Systems Review of Systems Systems Reviewed: All systems reviewed, normal except as documented Narrative Review of Systems: General: +weakness. Denies weight loss, fever and chills. HEENT: +blurry vision. Denies changes in hearing. Resp: Denies SOB and cough. CVS: Denies palpitations and CP. GI: Denies abdominal pain, nausea, vomiting and diarrhea. : Denies dysuria and urinary frequency. MSK: Denies myalgia and joint pain. Denies rash and pruritus. Neuro: Denies headache and syncope. Psych: Denies recent changes in mood. Denies anxiety and depression. Objective/Exam Narrative Physical exam: Gen: AAOx3, answers Qs appropriately, pleasant to speak with, numerous tattoos noted on skin HEENT: NCAT, PERRLA, EOMI, MMM, no LAD CVS: normal S1, S2. RRR. No MRG Resp: CTA B/L. No rhonchi, rales, crackles or wheezing Abd: soft, non-tender, non-distended. BS+ in all 4 quadrants MSK: Good ROM in BUE & BLE. No edema or rash. Neuro: CN II-XII grossly intact. Strength 5/5 in BUE & BLE. Assessment & Plan Diagnosis / Problem List (1) Uncontrolled diabetes mellitus: Status: Acute Qualifiers: Diabetes mellitus type: type 2 Glycemic state: with hyperglycemia Qualified Code(s): E11.65 - Type 2 diabetes mellitus with hyperglycemia Assessment & Plan: New onset diabetes with presentation of DKA. Likely type 2 as patient states his brother has T2DM A1c 11.7% Plan: Patient started on 25 units Lantus at bedtime, 500 mg metformin twice daily CGM has been ordered Mario antibody pending Due to patient feeling hypoglycemic with fasting blood glucose 154, will not adjust current regimen. Patient to follow-up in 1 month and encouraged to bring log of blood sugars Patient was encouraged to make dietary and lifestyle modifications, including moderate exercise 150 minutes/week Podiatry and ophthalmology referrals sent (2) Proteinuria due to type 2 diabetes mellitus: Status: Acute Assessment & Plan: Patient with uncontrolled diabetes, 2+ protein noted on UA Concern for possible diabetic nephropathy Plan: Follow-up urine protein creatinine ratio Will start patient on 5 mg lisinopril. Adverse effects were discussed with patient Follow-up CMP to evaluate renal function after starting GRIS inhibitor (3) Hyperlipidemia associated with type 2 diabetes mellitus: Status: Acute Assessment & Plan: LDL noted to be 272 Plan: Due to transaminitis, patient was started on Zetia Follow-up CMP to evaluate liver function and consider transitioning to atorvastatin Plan DM: Continue Lantus, metformin, diet/lifestyle modifications, follow-up MARIO antibody, podiatry/ophthalmology referral sent Proteinuria: Started GRIS inhibitor, follow-up urine protein creatinine ratio, follow-up renal function Hyperlipidemia: Continue Zetia, follow-up liver panel and consider switching to statin Follow-up in clinic in 1 month. Obtain labs 1 week prior to appointment Orders: Referrals Ophthalmology Podiatry Office Procedures [facility] Level of Care Nursing/Assessment Patient Status: Established Patient Nursing Assessment/Reassessment: Medication Reconciliation, Update PMH in EMR and Vital Signs Coordination of Care: Complex Care and Chronic Disease 1-5, Consent,records obtained, informed consent, Education Simp Pt/Fam, Lab and Imaging orders and Staff clarify orders Established Patient Charge Established Patient Point Assignment: 100 Established Patient Point Charge: Level 3 (80-115)
[2024-07-03 13:55] VITALS: BP 110/76; PULSE 89; RESP 18; TEMP 36.3; O2SAT 97; BMI 31.3
== END 2024-07-03 14:25 | disposition home or self-care (01) ==
LOC: HODAHC 13:43
PROVIDERS: Supervising Provider Internal Medicine; Visit Provider Student in an Organized Health Care Education/Training Program
DX: E11.65 Type 2 diabetes mellitus with hyperglycemia (principal); Z79.4 Long term (current) use of insulin; Z79.84 Long term (current) use of oral hypoglycemic drugs; R80.9 Proteinuria, unspecified; E78.5 Hyperlipidemia, unspecified
CPT/HCPCS: 99213; G0463

== ENCOUNTER 2024-07-03 19:24 | Emergency (ER) | payer MEDICAID, SELFPAY ==
[2024-07-03 19:26] VITALS: BMI 30.7
[2024-07-03 20:40] VITALS: BP 117/81; PULSE 95; RESP 18; TEMP 37; O2SAT 98
--- NOTE | 2024-07-03 20:49 | PD.EDRME ---
Rapid Medical Screening Exam RME Arrival date/time: 07/03/24 19:24 34 year old male present to Ed for c/o of elevated blood glucose. I have greeted and performed a focused initial assessment of this patient. A comprehensive ED assessment and evaluation of the patient, analysis of all test results, and completion of the medical decision making process will be conducted by additional ED providers. Chief Complaint: General Adult/Misc Complain Time Seen by Provider: 07/03/24 20:27 Vital signs: Vital Signs Temperature 98.6 F 07/03/24 20:40 Pulse Rate 95 07/03/24 20:40 Respiratory Rate 18 07/03/24 20:40 Blood Pressure 117/81 07/03/24 20:40 Pulse Oximetry (%) 98 07/03/24 20:40 Oxygen Delivery Method Room Air 07/03/24 20:40
--- NOTE | 2024-07-03 20:54 | EKG_ITS ---
[facility] Test Date: 2024-07-03 Pat Name: EMILY DIOP Department: Room: - Gender: Male Stuffed Casing Tier: : 1990 Requested By: Bebo Mccullough Order Number: [id number] Reading MD: Bebo Mccullough Measurements Intervals [place] Rate: 81 P: 46 AL: 157 QRS: 21 QRSD: 86 T: 15 QT: 353 QTc: 410 Interpretive Statements SINUS RHYTHM Compared to ECG 06/27/2024 14:42:59 Junctional tachycardia no longer present Ventricular premature complex(es) no longer present Indeterminate axis no longer present /store/S0/[id number]/ecg/[id number].pdf
[2024-07-03 21:31] LABS: Lactate (Lactic Acid) 1.3 mMol/L (0.4-2.0)
[2024-07-03 21:34] LABS: Beta Hydroxybutyrate 0.2 mmol/L (<0.6)
[2024-07-03 21:37] LABS: Basophils % (Auto) 0 % (0-2.5); Eosinophils # (Auto) 0.2 Thou/mm3 (0.0-0.5); Eosinophils % (Auto) 4 % (0-10); Hemoglobin 12.5 g/dL (13.5-16.0); Immature Granulocytes % (Auto) 0 % (0-0); Immature Granulocytes Auto 0.01 Thou/mm3 (0.00-0.00); Lymphocytes # (Auto) 1.8 Thou/mm3 (1.0-4.8); Lymphocytes % (Auto) 39 % (10-50); Mean Corpuscular HGB Conc 34.7 g/dl (31.0-37.0); Mean Corpuscular Volume 95 fL (80-100); Monocytes # (Auto) 0.7 Thou/mm3 (0.0-0.8); Monocytes % (Auto) 15 % (0-12); Neutrophils % (Auto) 43 % (37-80); Nucleated Red Blood Cell % 0 /100 WBC (0); Platelet Count 136 Thou/mm3 (140-440); RDW Standard Deviation 42.1 fL (35.1-43.9); Red Blood Count 3.79 Miln/mm3 (4.50-5.90); White Blood Count 4.6 Thou/mm3 (3.8-10.6)
[2024-07-03 22:01] LABS: Alanine Aminotransferase 355 U/L (10-49); Albumin, Serum 4.1 gm/dL (3.5-5.0); Albumin/Globulin Ratio 1.6 (1.2-2.2); Alkaline Phosphatase 69 U/L (46-116); Anion Gap 7 (7-16); Aspartate Amino Transferase 231 U/L (0-34); BUN/Creatinine Ratio 6 Ratio (12-20); Bilirubin,Total 0.4 mg/dL (0.3-1.2); Blood Urea Nitrogen 7 mg/dL (9-23); Calcium 9.3 mg/dL (8.3-10.6); Calcium (Corrected) 9.3 mg/dL (8.5-10.1); Carbon Dioxide 27.6 mMol/L (20.0-31.0); Chloride 101 mMol/L (98-107); Creatinine (Component) 1.1 mg/dL (0.6-1.3); Estimated Creatinine Clearance 98.3 mL/min (>60); Globulin 2.5 gm/dL (2.3-3.5); Glucose 293 mg/dL (74-106); Lipase 235 U/L (12-53); Osmolality,Calculated 280 (275-295); Potassium 3.8 mMol/L (3.4-5.1); Sodium 136 mMol/L (136-145); Total Protein 6.6 gm/dL (5.7-8.2); Troponin I < 0.002 ng/mL (0.0-0.045); eGFR > 60 See Note
[2024-07-04 02:05] VITALS: BP 129/82; PULSE 81; RESP 16; TEMP 37.1; O2SAT 99
--- NOTE | 2024-07-04 03:08 | PC.NURSE ---
pt called from the lobby and received no answer.
--- NOTE | 2024-07-04 03:31 | PC.NURSE ---
PT CALLED BACK FROM [facility] NO ANSWER
--- NOTE | 2024-07-04 04:23 | PC.NURSE ---
PT CALLED BACK FROM [facility] NO ANSWER
== END 2024-07-04 03:08 | disposition left against medical advice (07) ==
LOC: SERX 22:15
PROVIDERS: Physician Assistant; Emergency Provider Emergency Medicine
DX: R73.9 Hyperglycemia, unspecified (principal)
CPT/HCPCS: 36415; 80053; 81001; 82010; 83605; 83690; 83735; 84484; 85025; 93005; 99281

== ENCOUNTER 2024-08-06 09:09 | Outpatient (AMB) | payer MEDICAID, SELFPAY ==
--- NOTE | 2024-08-06 09:23 | ACNOTE_ITS ---
Vital Signs 08/06/24 09:24 Height 1.68 m Height Method Stated Weight 91.285 kg Weight Measurement Method Standing Scale BMI 32.5 BP 144/82 H Blood Pressure Source Automatic Cuff Blood Pressure Location Left Upper Arm Position Sitting Respiration 17 Pulse 94 Pulse Source Monitor Temp 97.1 F Temp Source Oral Pulse Oximetry (%) 94 L Oxygen Delivery Method Room Air Allergies/Meds Allergies & Medications Allergies No Known Allergies Allergy (Verified 07/03/24 13:56) Medication Reconciliation blood-glucose sensor (FreeStyle Aileen 3 Plus Sensor device) #2 ea 06/30/24 [Rx Confirmed 07/03/24] pen needle, diabetic 29 gauge x 1/2 #100 ea 06/30/24 [Rx Confirmed 07/03/24] blood sugar diagnostic (Blood Glucose Test strips) #100 ea 07/10/24 [Rx] lancets 28 gauge (Comfort EZ Lancets) #100 ea 07/10/24 [Rx] ezetimibe 10 mg tablet 10 mg PO QDAY #30 tabs 08/06/24 [Rx Confirmed 08/11/24] lisinopril 5 mg tablet 5 mg PO QDAY #30 tabs 08/06/24 [Rx Confirmed 08/11/24] metformin 500 mg tablet 500 mg PO BID #60 tabs 08/06/24 [Rx Confirmed 08/11/24] MA Intake Visit Data Collection New Patient or Established: Established Patient (seen at [facility] within 3 years) Seen by Clinical Staff ONLY (RN/MA): No Pain Present Currently: No Pain scale:: 0 Pain Scale Used: Garcia-Tang/Numerical Police Clerk Required: No PCP or OBGYN visit in last 3 months: No Hx Now: No Do You Feel Safe at Home: Yes Authorities Contacted: N/A Smoking Status Smoking Status: Former smoker Immunization / Flu Flu Vaccine in the Last 12 Months: No Flu Vaccine Exclusion Criteria: No Exclusion Criteria Past Medical History Past Medical History CARDIAC: Negative Congestive Heart Failure RESPIRATORY: Negative Chronic Obstructive Pulmonary Disease (COPD) GENITOURINARY: Negative Renal Disease ENDOCRINE: Negative Diabetes Mellitus Type 1 or Diabetes Mellitus Type 2 Social History SMOKING STATUS: Smoking status: Former smoker HOUSING: Housing: House LIVES WITH: Lives With: Family Patient Portal Questionaires Social History Living Situation History Housing: House Tobacco History Smoking Status: Former smoker Domestic Abuse History Do You Feel Safe at Home: Yes Review of Systems Report any current symptoms Only answer those that you have currently: Past Medical History Past Medical History Have you ever been diagnosed with any of the following: Cardiology Problems Congestive Heart Failure: No Respiratory Problems Chronic Obstructive Pulmonary Disease (COPD): No Genital/Urinary Problems Renal Disease: No Endocrine Problems Diabetes Mellitus Type 1: No Diabetes Mellitus Type 2: No History of Present Illness HPI Narrative Patient is a 34-year-old male with new onset diabetes who presented to [facility] with DKA. He was admitted to the ICU for DKA protocol with IV fluids, IV insulin electrolyte replacement protocol. Patient was transition to subcutaneous insulin once anion gap closed x 2, and was discharged on metformin 500 mg twice daily and 25 units Lantus at bedtime. Additionally, patient was started on Zetia in lieu of a statin due to transaminitis for hyperlipidemia. Patient presents to [facility] for follow-up. Patient states he has been taking the Lantus 25 at bedtime and metformin 500 twi ce daily. Patient states that his CGM sample has not been reading, however he has been checking his blood sugars with glucometer, with his blood sugars ranging between 154 fasting and as high as 254 throughout the day. Patient endorses feeling tired, weak and some blurry vision on the morning when his fasting blood glucose was 154. At this time, patient was advised to continue current regimen to prevent hypoglycemic symptoms. Will send urine protein creatinine ratio and start patient on low-dose lisinopril, as proteinuria is noted on UA. Will have patient follow-up in [facility] 1 month after obtaining CMP, to evaluate liver and kidney function. Will also send podiatry and ophthalmology referrals. 08/06/2024: patient was seen and examined at [facility]. Patient was presented to follow up and for medication refill. He denies any nausea, vomiting, cp, palpitation, dissiness or any other symptoms. Stated that he is complaiant with medication, and was doing well on insulin, He does check his BG at home and usually it is between 113-120. He is trying to follow healthy life style. was taking lisinopril , ezatinib and metformin along with insulin 25 units PM. He needs a refill for this medication. On last visit labs was ordered, however patient never had lab done, today he is willing to check the labs. We will repeat Urinalisis and creatinin/protein ration, will follow up with the lipid panel, and CMP. We will see the patient in 1 month. All questions and concerns were adressed,. He gave verbalized understanding. Review of Systems Review of Systems Systems Reviewed: All systems reviewed, normal except as documented Objective/Exam Narrative Physical exam: GENERAL: no acute distress, AAO x3, well nourished. HEENT: Head AT/ NC. Mucous membranes moist. PERRL. NECK: Supple, no lymphadenopathy, no carotid bruits. CARDIOVASCULAR: RRR. Normal S1/S2, No m/r/g. No pitting edema of bilateral LEs. RESPIRATORY: CTAB. No wheezing, rhonchi, crackles. GASTROINTESTINAL: Abdomen soft, non tender no palpable masses. Bowel sounds present in all 4 quadrants. MUSCULOSKELETAL:? No cyanosis or edema, no visible joint swelling. NEUROLOGICAL: CN II-XII grossly intact. No focal deficits. Sensation intact, symmetric. PSYCHIATRIC: Awake and alert, not agitated, normal mood and affect. INTEGUMENTARY: No obvious rashes, no jaundice, normal turgor. Assessment & Plan Diagnosis / Problem List (1) Diabetes: Status: Acute Qualifiers: Diabetes mellitus type: type 1 Plan: 25 units Lantus at bedtime, 500 mg metformin twice daily refilled today CGM has been ordered Patient was encouraged to make dietary and lifestyle modifications, including moderate exercise 150 minutes/week Podiatry and ophthalmology referrals sent (2) Hyperlipidemia associated with type 2 diabetes mellitus: Status: Acute Plan: LDL noted to be 272 Due to transaminitis, patient was started on Zetia, refilled today Follow-up CMP to evaluate liver function and consider transitioning to atorvastatin, follow up with lipid panel (3) Proteinuria due to type 2 diabetes mellitus: Status: Acute Plan: Patient with uncontrolled diabetes, 2+ protein noted on UA Concern for possible diabetic nephropathy Follow-up urine protein creatinine ratio Will start patient on 5 mg lisinopril. Adverse effects were discussed with patient Follow-up CMP to evaluate renal function after starting GRIS inhibitor (4) Transaminitis: Status: Acute Assessment & Plan: Noted on prior labs. Patient on ezetimibe instead of statin for this reason. Hepatitis studies negative. Plan: Recheck CMP. Plan Ophthalmology Offender Employment Specialist Orders: Orders Comprehensive Metabolic Panel 08/06/24 Urinalysis 08/06/24 Lipid Panel 08/06/24 Additional Assessment Internal Medicine Attending Note: Case discussed with and agree with note and management plan of Resident Physician as per Resident's Note above. Issues of concern for present visit are as follows: Follow-up visit. Diabetes self-care reviewed including diet, exercise, footcare, eye care. Checking sugars at home, states usually fasting between 110-120. Reports medication compliance. Using basal insulin glargine at nighttime. Labs previously ordered were not completed. We will reorder these today. Refills provided for lisinopril, ezetimibe, and metformin. Note made of elevated blood pressure today at 144/82, recheck at next visit and as outpatient. If continues to be elevated, will need further titration of lisinopril. Prior blood pressures have been within acceptable range. At future visit, if transaminitis has resolved, would start patient on statin in place of ezetimibe given that he is diabetic. Bebo Acosta MD Physician Billing Established Patient Established Patient: E/M Level 3-CPT 31569 Office Procedures [facility] Level of Care Nursing/Assessment Patient Status: Established Patient Nursing Assessment/Reassessment: Medication Reconciliation, Update PMH in EMR and Vital Signs Coordination of Care: Complex Care and Chronic Disease 1-5, Consent,records obtained, informed consent, Education Simp Pt/Fam, Lab and Imaging orders and Staff clarify orders Established Patient Charge Established Patient Point Assignment: 100 Established Patient Point Charge: EP Level 3 (80-115)
[2024-08-06 09:24] VITALS: BP 144/82; PULSE 94; RESP 17; TEMP 36.2; O2SAT 94; BMI 32.5
== END 2024-08-06 09:55 | disposition home or self-care (01) ==
PROVIDERS: PCP Student in an Organized Health Care Education/Training Program; Referring Provider Student in an Organized Health Care Education/Training Program; Supervising Provider Internal Medicine
DX: E11.9 Type 2 diabetes mellitus without complications (principal); Z79.4 Long term (current) use of insulin; Z79.84 Long term (current) use of oral hypoglycemic drugs; E78.5 Hyperlipidemia, unspecified; R80.9 Proteinuria, unspecified; R74.01 Elevation of levels of liver transaminase levels; Z76.0 Encounter for issue of repeat prescription
CPT/HCPCS: 99213; G0463

== ENCOUNTER 2024-09-24 08:44 | Outpatient (AMB) | payer MEDICAID, SELFPAY ==
[2024-09-24 08:55] VITALS: BP 127/80; PULSE 110; RESP 16; TEMP 36.8; O2SAT 93; BMI 32.9
--- NOTE | 2024-09-24 08:55 | ACNOTE_ITS ---
Vital Signs 09/24/24 08:55 Height 1.68 m Height Method Stated Weight 93.043 kg Weight Measurement Method Standing Scale BMI 32.9 BP 127/80 Blood Pressure Source Automatic Cuff Blood Pressure Location Left Upper Arm Position Sitting Respiration 16 Pulse 110 H Pulse Source Monitor Temp 98.2 F Temp Source Temporal Artery Scan Pulse Oximetry (%) 93 L Oxygen Delivery Method Room Air Allergies/Meds Allergies & Medications Allergies No Known Allergies Allergy (Verified 09/24/24 08:56) Medication Reconciliation pen needle, diabetic 29 gauge x 1/2 #100 ea 06/30/24 [Rx Confirmed 09/24/24] blood sugar diagnostic (Blood Glucose Test strips) #100 ea 07/10/24 [Rx Confirmed 09/24/24] lancets 28 gauge (Comfort EZ Lancets) #100 ea 07/10/24 [Rx Confirmed 09/24/24] Basaglar KwikPen U-100 Insulin 100 unit/mL (3 mL) subcutaneous (insulin glargine) 25 unit (0.25 mL) subcut QPM 30 days #7.5 mL 08/28/24 [Rx Confirmed 09/24/24] pen needle, diabetic 31 gauge x 1/4 (1st Tier Unifine Pentips Plus) #100 ea 08/28/24 [Rx Confirmed 09/24/24] ezetimibe 10 mg tablet 10 mg PO QDAY #30 tabs 09/04/24 [Rx Confirmed 09/24/24] lisinopril 5 mg tablet 5 mg PO QDAY #30 tabs 09/04/24 [Rx Confirmed 09/24/24] blood-glucose sensor (FreeStyle Aileen 3 Plus Sensor device) #2 ea 09/24/24 [Rx] metformin 500 mg tablet 500 mg PO BID #60 tabs 09/24/24 [Rx] MA Intake Visit Data Collection New Patient or Established: Established Patient (seen at [facility] within 3 years) Seen by Clinical Staff ONLY (RN/MA): No Pain Present Currently: No Pain scale:: 0 Pain Scale Used: GarciaAbby/Numerical Critical Care Transport Nurse Required: No PCP or OBGYN visit in last 3 months: Yes Hx Now: No Do You Feel Safe at Home: Yes Authorities Contacted: N/A Smoking Status Smoking Status: Former smoker Immunization / Flu Flu Vaccine in the Last 12 Months: No Flu Vaccine Exclusion Criteria: No Exclusion Criteria Past Medical History Past Medical History CARDIAC: Negative Congestive Heart Failure RESPIRATORY: Negative Chronic Obstructive Pulmonary Disease (COPD) GENITOURINARY: Negative Renal Disease ENDOCRINE: Negative Diabetes Mellitus Type 1 or Diabetes Mellitus Type 2 Social History SMOKING STATUS: Smoking status: Former smoker HOUSING: Housing: House LIVES WITH: Lives With: Family Patient Portal [place] Social History Living Situation History Housing: House Tobacco History Smoking Status: Former smoker Domestic Abuse History Do You Feel Safe at Home: Yes Review of Systems Report any current symptoms Only answer those that you have currently: Past Medical History Past Medical History Have you ever been diagnosed with any of the following: Cardiology Problems Congestive Heart Failure: No Respiratory Problems Chronic Obstructive Pulmonary Disease (COPD): No Genital/Urinary Problems Renal Disease: No Endocrine Problems Diabetes Mellitus Type 1: No Diabetes Mellitus Type 2: No History of Present Illness HPI Narrative Patient is a 34-year-old male with new onset diabetes who presented to [facility] with DKA. He was admitted to the ICU for DKA protocol with IV fluids, IV insulin electrolyte replacement protocol. Patient was transition to subcutaneous insulin once anion gap closed x 2, and was discharged on metformin 500 mg twice daily and 25 units Lantus at bedtime. Additionally, patient was started on Zetia in lieu of a statin due to transaminitis for hyperlipidemia. Patient presents to [facility] for follow-up. Patient states he has been taking the Lantus 25 at bedtime and metformin 500 twice daily. Patient states that his CGM sample has not been reading, however he has been checking his blood sugars with glucometer, with his blood sugars ranging between 154 fasting and as high as 254 throughout the day. Patient endorses feeling tired, weak and some blurry vision on the morning when his fasting blood glucose was 154. At this time, patient was advised to continue current regimen to prevent hypoglycemic symptoms. Will send urine protein creatinine ratio and start patient on low-dose lisinopril, as proteinuria is noted on UA. Will have patient follow-up in [facility] 1 month after obtaining CMP, to evaluate liver and kidney function. Will also send podiatry and ophthalmology referrals. 08/06/2024: patient was seen and examined at [facility]. Patient was presented to follow up and for medication refill. He denies any nausea, vomiting, cp, palpitation, dissiness or any other symptoms. Stated that he is complaiant with medication, and was doing well on insulin, He does check his BG at home and usually it is between 113-120. He is trying to follow healthy life style. was taking lisinopril , ezatinib and metformin along with insulin 25 units PM. He needs a refill for this medication. On last visit labs was ordered, however patient never had lab done, today he is willing to check the labs. We will repeat Urinalisis and creatinin/protein ration, will follow up with the lipid panel, and CMP. We will see the patient in 1 month. All questions and concerns were adressed,. He gave verbalized understanding. 09/24/2024: Here to follow-up on medications and labs. CGM was not approved by his insurance. Using 25 units basal INSULIN, fingerstick GLUCOSE checks in AM around 80-130 with occasional hypoglycemic episode with GLUCOSE 65-70. Otherwise tolerating medications well. Has been avoiding alcohol consumption, drinking about a 12 pack on weekends. Labs from 09/23/2024 are all improving with AST 43, ALT 68, GLUCOSE 105, cholesterol 205, TG 160, LDL 105. Will continue with current medication. Sending preauthorization for CGM and repeat A1c (last A1C 11.7 fom 06/2024). Will continue with EZETIMIBE, consider switching to statin once LFTs improved. Review of Systems Review of Systems Systems Reviewed: All systems reviewed, normal except as documented Narrative Review of Systems: GENERAL: Denies fevers/chills or diaphoresis. HEENT: Denies headache or visual/hearing changes. Denies nasal discharge. NEURO: Denies unusual weakness or difficulty speaking. CARDIO: Denies chest pain or palpitations. PULM: Denies SOB, coughing, or wheezing. GI: Denies abdominal pain, N/V/C/D/reflux/gas, bright red blood per rectum or melena. Reports having BMs. URO: Denies burning/itching/pain/urinary changes. MSK/EXT/SKIN: Denies joint/skeletal/muscle pain, issues/changes in upper or lower extremities, itchiness, or superficial pain. PSYCH: Cooperative, pleasant mood & affect. Objective/Exam Narrative Physical exam: GENERAL * Normal-appearing adult male HEENT * NCAT.?BILL. Oral mucosa is moist. Patent Nares NECK * Supple, nontender, no thyromegaly, no meningismus, no JVD, no step offs CHEST * RRR, no m/g/r * CTAB, no w/r/r. Symmetrical chest rise. No intercostal subcostal retraction * Atraumatic, nontender, no crepitus, symmetrical expansion. ABDOMEN * Soft, flat, nontender. No guarding/rebound tenderness/masses. * Bowel sounds presents EXTREMITIES * No edema/cyanosis.? SKIN * Warm and dry, no jaundice/rashes. NEUROMUSCULAR * No lumbar or midline, no CVA, no paraspinal muscle spasm or tenderness. * Moves all 4 extremities well, with full ROM and good CSM. * JAUREGUI x4, CN II-XII grossly intact. * No focal neurologic deficits. PSYCHIATRY * Normal mood and affect, cooperative, no SI or HI or hallucinations. Assessment & Plan Diagnosis / Problem List (1) Insulin dependent diabetes mellitus: Status: Acute Assessment & Plan: Newly diagnosed insulin-dependent diabetes in June 2024 during hospitalization for pancreatitis. A1c 11.7 then. Currently on METFORMIN 500 BID and LANTUS 25 units daily. Tolerating medications well. AM GLUCOSE have been around 80-130, with frequent hypoglycemic episodes of 65-70. Labs completed yesterday 09/23/2024 with GLUCOSE 105. Urinalysis pending. Plan: Continue METFORMIN 500 BID, LANTUS 25 units HS Continue with LISINOPRIL 5 mg for renal protection. Will send preauthorization for freestyle aileen 3 Advised checking GLUCOSE 2 hours following meals, avoiding processed food and limiting CHOs, daily exercise of at least 30 minutes 5 days a week. Repeat A1c ordered F/U in 1 month (2) Hypoglycemia: Status: Acute Assessment & Plan: Reports recurrent episode of hypoglycemia with GLUCOSE 65?70. Likely difficulty controlling his GLUCOSE, given newly diagnosed diabetes. Would certainly benefit from CGM. Plan: Continue checking GLUCOSE in a.m., and 2 hours following meals. Advised fruit juice if GLUCOSE <70 or symptomatic. Will send preauthorization for freestyle aileen 3. (3) Transaminitis: Status: Acute Assessment & Plan: Possibly related to alcohol given history of heavy alcohol use. Hepatitis panel was negative in June 2024. AST and ALT's have improved, currently 43 and 68. Limited alcohol use to a 12 pack on weekend. Currently asymptomatic. Plan: Advised limiting alcohol consumption to 1 drink daily Will continue following up with A1c's and ALTs (4) Hyperlipidemia associated with type 2 diabetes mellitus: Status: Acute Assessment & Plan: Likely related to diet and lack of activity. Lipid panel has improved with 3 months of EZETIMIBE. Plan: Continue with EZETIMIBE. Consider switching to statin once LFTs normalize. Follow-up lipid panel in 6 months. Orders: Orders Ambulatory Hemoglobin A1C Today Office Procedures [facility] Level of Care Nursing/Assessment Patient Status: Established Patient Nursing Assessment/Reassessment: Medication Reconciliation, Update PMH in EMR and Vital Signs Coordination of Care: Complex Care and Chronic Disease 1-5, Consent,records obtained, informed consent, Education Simp Pt/Fam, Lab and Imaging orders and Staff clarify orders Established Patient Charge Established Patient Point Assignment: 100 Established Patient Point Charge: Level 3 (80-115)
--- NOTE | 2024-09-24 08:57 | PD.RESCLINIC ---
Vital Signs 09/24/24 08:55 09/24/24 08:59 Height 1.68 m Height Method Stated Weight 93.043 kg Weight Measurement Method Standing Scale BMI 32.9 BP 127/80 127/80 Blood Pressure Source Automatic Cuff Blood Pressure Location Left Upper Arm Position Sitting Respiration 16 16 Pulse 110 H 110 H Pulse Source Monitor Temp 98.2 F 98.2 F Temp Source Temporal Artery Scan Pulse Oximetry (%) 93 L 93 L Oxygen Delivery Method Room Air Allergies/Meds Allergies & Medications Allergies No Known Allergies Allergy (Verified 09/24/24 08:56) Medication Reconciliation blood-glucose sensor (FreeStyle Aileen 3 Plus Sensor device) #2 ea 06/30/24 [Rx Confirmed 09/24/24] pen needle, diabetic 29 gauge x 1/2 #100 ea 06/30/24 [Rx Confirmed 09/24/24] blood sugar diagnostic (Blood Glucose Test strips) #100 ea 07/10/24 [Rx Confirmed 09/24/24] lancets 28 gauge (Comfort EZ Lancets) #100 ea 07/10/24 [Rx Confirmed 09/24/24] metformin 500 mg tablet 500 mg PO BID #60 tabs 08/06/24 [Rx Confirmed 09/24/24] Basaglar KwikPen U-100 Insulin 100 unit/mL (3 mL) subcutaneous (insulin glargine) 25 unit (0.25 mL) subcut QPM 30 days #7.5 mL 08/28/24 [Rx Confirmed 09/24/24] pen needle, diabetic 31 gauge x 1/4 (1st Tier Unifine Pentips Plus) #100 ea 08/28/24 [Rx Confirmed 09/24/24] ezetimibe 10 mg tablet 10 mg PO QDAY #30 tabs 09/04/24 [Rx Confirmed 09/24/24] lisinopril 5 mg tablet 5 mg PO QDAY #30 tabs 09/04/24 [Rx Confirmed 09/24/24] MA Intake Visit Data Collection Do You Feel Safe at Home: Yes Smoking Status Smoking Status: Former smoker Past Medical History Past Medical History CARDIAC: Negative Congestive Heart Failure RESPIRATORY: Negative Chronic Obstructive Pulmonary Disease (COPD) GENITOURINARY: Negative Renal Disease ENDOCRINE: Negative Diabetes Mellitus Type 1 or Diabetes Mellitus Type 2 Social History SMOKING STATUS: Smoking status: Former smoker HOUSING: Housing: House LIVES WITH: Lives With: Family Patient Portal Questionaires Social History Living Situation History Housing: House Tobacco History Smoking Status: Former smoker Domestic Abuse History Do You Feel Safe at Home: Yes Review of Systems Report any current symptoms Only answer those that you have currently: Past Medical History Past Medical History Have you ever been diagnosed with any of the following: Cardiology Problems Congestive Heart Failure: No Respiratory Problems Chronic Obstructive Pulmonary Disease (COPD): No Genital/Urinary Problems Renal Disease: No Endocrine Problems Diabetes Mellitus Type 1: No Diabetes Mellitus Type 2: No History of Present Illness HPI Narrative Patient is a 34-year-old male with new onset diabetes who presented to [facility] with DKA. He was admitted to the ICU for DKA protocol with IV fluids, IV insulin electrolyte replacement protocol. Patient was transition to subcutaneous insulin once anion gap closed x 2, and was discharged on metformin 500 mg twice daily and 25 units Lantus at bedtime. Additionally, patient was started on Zetia in lieu of a statin due to transaminitis for hyperlipidemia. Patient presents to [facility] for follow-up. Patient states he has been taking the Lantus 25 at bedtime and metformin 500 twice daily. Patient states that his CGM sample has not been reading, however he has been checking his blood sugars with glucometer, with his blood sugars ranging between 154 fasting and as high as 254 throughout the day. Patient endorses feeling tired, weak and some blurry vision on the morning when his fasting blood glucose was 154. At this time, patient was advised to continue current regimen to prevent hypoglycemic symptoms. Will send urine protein creatinine ratio and start patient on low-dose lisinopril, as proteinuria is noted on UA. Will have patient follow-up in [facility] 1 month after obtaining CMP, to evaluate liver and kidney function. Will also send podiatry and ophthalmology referrals. 08/06/2024: patient was seen and examined at [facility]. Patient was presented to follow up and for medication refill. He denies any nausea, vomiting, cp, palpitation, dissiness or any other symptoms. Stated that he is complaiant with medication, and was doing well on insulin, He does check his BG at home and usually it is between 113-120. He is trying to follow healthy life style. was taking lisinopril , ezatinib and metformin along with insulin 25 units PM. He needs a refill for this medication. On last visit labs was ordered, however patient never had lab done, today he is willing to check the labs. We will repeat Urinalisis and creatinin/protein ration, will follow up with the lipid panel, and CMP. We will see the patient in 1 month. All questions and concerns were adressed,. He gave verbalized understanding. did not cover CGM. Fingersticks 90-130, sometimes 70s Office Procedures [facility] Level of Care Nursing/Assessment Patient Status: Established Patient Nursing Assessment/Reassessment: Medication Reconciliation, Update PMH in EMR and Vital Signs Coordination of Care: Complex Care and Chronic Disease 1-5, Consent,records obtained, informed consent, Education Simp Pt/Fam, Lab and Imaging orders and Staff clarify orders Established Patient Charge Established Patient Point Assignment: 100 Established Patient Point Charge: EP Level 3 (80-115)
== END 2024-09-24 09:36 | disposition home or self-care (01) ==
LOC: HODAHC 08:44
PROVIDERS: Supervising Provider Internal Medicine
DX: Z71.2 Person consulting for explanation of examination or test findings (principal); E11.649 Type 2 diabetes mellitus with hypoglycemia without coma; R74.01 Elevation of levels of liver transaminase levels; E78.5 Hyperlipidemia, unspecified; Z79.4 Long term (current) use of insulin; Z79.84 Long term (current) use of oral hypoglycemic drugs
CPT/HCPCS: 99213; G0463